=== PATIENT | female | born 1950 | race Caucasian/White ===

== ENCOUNTER → 2017-03-05 | Outpatient (CLI) | payer MEDICARE ==
--- NOTE | 2017-03-05 15:24 | US ---
EXAMINATION: Ultrasound guided right breast biopsy HISTORY: Mass COMPARISON: 02/24/2017 TECHNIQUE: The procedure, risks, and benefits were discussed with the patient. Informed consent was obtained. The mass was located within the overlying area was sterilely prepped and draped. 1% lidoca ine was administered for local anesthesia. Using ultrasound guidance a total of 3 14-gauge core biop sies were obtained. A clip was placed following the procedure. The patient tolerated the procedure w ell. No immediate complications. IMPRESSION: Successful ultrasound-guided biopsy of the right breast mass.
== END ==
LOC: MW.US 10:14
PROVIDERS: ATTEND Family Medicine
DX: N63 Unspecified lump in breast (principal)
CPT/HCPCS: 19083-RT; 88305

== ENCOUNTER 2017-05-07 07:24 | Day surgery (SDC) | payer MEDICARE ==
[~2017-05-07 07:24] MED LIST: Lactated Ringers 1,000 ML IV SCH; Sodium Chloride 0.9% 10 ML Syringe FLUSH PRN; Sodium Chloride 0.9% 2.5 ML Syringe FLUSH PRN; ceFAZolin 1 GM in Premix Bag 1 BAG IV ONE
[2017-05-07] MEDS ORDERED: Lidocaine 1% 20 ML MDV ONE (07:31)
[2017-05-07] MEDS ORDERED: Bupivacaine 0.5% 30 ML SDV ONE (07:31)
--- NOTE | 2017-05-07 08:35 | PCM.PREANE ---
Preanesthetic Assessment - Anesthesia/Transfusion/Family Hx Anesthesia History: Prior Anesthesia Without Reaction Family History of Anesthesia Reaction: No Transfusion History: No Prior Transfusion(s) Intubation History: Unknown - Review of Systems General: No Symptoms Pulmonary: No Symptoms Cardiovascular: No Symptoms Gastrointestinal: No Symptoms Neurological: No Symptoms Other: Reports: None - Physical Assessment O2 Sat by Pulse Oximetry: 98 Respiratory Rate: 16 Vital Signs: Last Vital Signs Temp 36.5 C 05/07/17 07:36 Pulse 69 05/07/17 07:36 Resp 16 05/07/17 07:36 BP 161/74 H 05/07/17 07:36 Pulse Ox 98 05/07/17 07:36 Height: 1.63 m Weight: 52.617 kg ASA Class: 2 Mental Status: Alert & Oriented x3 Airway Class: Mallampati = 2 Dentition: Reports: Dentures (upper and lower) Thyro-Mental Finger Breadths: 3 Mouth Opening Finger Breadths: 3 ROM/Head Extension: Full Lungs: Clear to Auscultation, Normal Respiratory Effort Cardiovascular: Regular Rate, Regular Rhythm - Allergies Allergies/Adverse Reactions: Allergies Allergy/AdvReac Type Severity Reaction Status Date / Time No Known Allergies Allergy Verified 01/06/15 14:40 - Blood Blood Available: No - Anesthesia Plan Pre-Op Medication Ordered: None - Acknowledgements Anesthesia Type Planned: General Anesthesia Pt an Appropriate Candidate for the Planned Anesthesia: Yes Alternatives and Risks of Anesthesia Discussed w Pt/Guardian: Yes Pt/Guardian Understands and Agrees with Anesthesia Plan: Yes PreAnesthesia Questionnaire Other HEENT History: top and bottom dentures, Respiratory History: Reports: Other (See Below) Other Respiratory History: former smoker, has SOB with activity (ventolin inhaler prn), can wall 2 blocks without problems Gastrointestinal History: Reports: None Genitourinary History: Reports: None 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: Musculoskeletal History: Reports: Arthritis, Fracture Other Musculoskeletal History: hx surgery for fx left ankle Psychiatric History: Reports: Anxiety, Depression Other Psychiatric History: hx alcohol abuse Oncologic (Cancer) History: Reports: Breast (infiltrating ductal CA right breast ), Uterine - Past Surgical History Head Surgeries/Procedures: Reports: None HEENT Surgical History: Reports: Cataract Surgery, Tonsillectomy GI Surgical History: Reports: Colonoscopy Female Surgical History: Reports: Hysterectomy Musculoskeletal Surgical History: Reports: Other (See Below) (foot surgery) - SUBSTANCE USE Smoking Status *Q: Former Smoker Tobacco Use Within Last Twelve Months: No Days Per Week of Alcohol Use: 2 Number of Drinks Per Day: 5 Total Drinks Per Week: 10 Recreational Drug Use History: No Recreational Drug Type: Reports: Methamphetamine - HOME MEDS Home Medications: Home Meds Albuterol [Ventolin HFA] 1 - 2 puff INH Q4HR PRN 08/16/15 [History] - CURRENT (IN HOUSE) MEDS Current Meds: Current Medications Lactated Ringer's (Ringers, Lactated) 1,000 mls @ 125 mls/hr IV ASDIRECTED LYNNETTE Last Admin: 05/07/17 07:37 Dose: 125 mls/hr Sodium Chloride (Saline Flush) 10 ml FLUSH ASDIRECTED PRN PRN Reason: Keep Vein Open Sodium Chloride (Saline Flush) 2.5 ml FLUSH ASDIRECTED PRN PRN Reason: Keep Vein Open Discontinued Medications Bupivacaine HCl (Marcaine 0.5%) Confirm Administered Dose 30 ml .ROUTE .STK-MED ONE Stop: 05/07/17 07:32 Cefazolin Sodium/Dextrose 1 gm (/ Premix) 50 mls @ 100 mls/hr IV ONETIME ONE Stop: 05/06/17 11:00 Lidocaine HCl (Xylocaine 1%) Confirm Administered Dose 20 ml .ROUTE .STK-MED ONE Stop: 05/07/17 07:32
[2017-05-07] MEDS ORDERED: Midazolam 1 MG/ML 2 ML SDV ONE (09:10)
[2017-05-07] MEDS ORDERED: fentaNYL 100 MCG/2 ML SDV ONE (09:10)
[2017-05-07] MEDS ORDERED: Lidocaine 2% 5 ML SDV ONE (09:10)
[2017-05-07] MEDS ORDERED: Ondansetron 4 MG/2 ML SDV ONE (09:10)
[2017-05-07] MEDS ORDERED: Propofol 200 MG/20 ML SDV ONE (09:10)
[2017-05-07] MEDS ORDERED: ePHEDrine 50 MG/ML SDV ONE (10:24)
[2017-05-07] MEDS ORDERED: Octyl 2-Cyanoacrylate 1 Tube ONE (11:12)
--- NOTE | 2017-05-07 11:19 | US ---
EXAMINATION: Ultrasound-guided wire localization HISTORY: Breast mass COMPARISON: 03/05/2017 TECHNIQUE: The procedure, risks, and benefits were discussed with the patient. Consent was obtained. The mass was localized in the 12:00 position. The overlying area was sterilely prepped. 1% lidocain e was administered for local anesthesia. Using ultrasound guidance a wire localization needle was ad vanced through the breast mass and the hook was deployed on the opposite side. The wire was left in place. IMPRESSION: Successful ultrasound-guided wire localization of a right breast mass.
--- NOTE | 2017-05-07 11:21 | NM ---
EXAMINATION: Right breast lymphoscintigraphy HISTORY: Malignant neoplasm TECHNIQUE: The procedure was discussed with the patient. The right periareolar region was prepped wi th ChloraPrep. A needle filled with 1.1 mCi technetium 99M labeled sulfur colloid was used to place a total of 8 small intradermal injections surrounding the area lateral. The patient tolerated the pr ocedure well. FINDINGS: Post injection imaging demonstrates a sentinel lymph node within the right axillary region . IMPRESSION: Successful right breast lymphoscintigraphy.
--- NOTE | 2017-05-07 11:44 | MY ---
EXAMINATION: Specimen mammogram HISTORY: Lump COMPARISON: 02/24/2017 TECHNIQUE: Single specimen image FINDINGS/IMPRESSION: Post biopsy specimen mammogram demonstrates the mass of concern.
--- NOTE | 2017-05-07 12:33 | PCM.OPNOTE ---
- General Post-Op/Procedure Note Date of Surgery/Procedure: 05/07/17 Operative Procedure(s): Right sentinel lymph node biopsy and right lumpectomy Findings: [place] lymph nodes taken from right axilla. No evidence of malignancy on frozens. Right upper outer quadrant lumpectomy. Margins free of tumor. Pre Op Diagnosis: right breast cancer Post-Op Diagnosis: same Anesthesia Technique: General LMA Primary Surgeon: Alyssa Powers Pathology: right sentinel lymph node, right breast lump EBL in mLs: 10 Condition: Good Free Text/Narrative:: Intake & Output 05/06/17 05/07/17 05/07/17 22:59 06:59 14:59 Intake Total 1450 Balance 1450
[2017-05-07] MEDS ORDERED: Acetaminophen/oxyCODONE 325-5 MG Tab PO PRN (12:35)
[2017-05-07 13:15] VITALS: BP 134/59
--- NOTE | 2017-05-08 02:19 | OR ---
SURGEON: GARO GARZA MD DATE OF PROCEDURE: 05/07/2017 PREOPERATIVE DIAGNOSIS: Invasive ductal carcinoma of the right breast. POSTOPERATIVE DIAGNOSIS: Invasive ductal carcinoma of the right breast. PROCEDURE PERFORMED: Right breast lumpectomy and sentinel lymph node biopsy. ANESTHESIA: General LMA. EBL: 10 mL. FLUIDS: 1450 mL crystalloid. FINDINGS: Right axillary sentinel lymph node with no evidence of metastasis on frozen section. Right upper outer quadrant breast mass that was wire localized. Radiograph shows complete resection of the mass. Frozen section showed good margins. COMPLICATIONS: None. INDICATIONS: The patient is a 67-year-old female, who presents to clinic with a biopsy-proven invasive ductal carcinoma of the right upper outer quadrant of the breast. The patient has no clinically palpable axillary lymph nodes. The decision was made to proceed to the operating room for a right breast lumpectomy and sentinel lymph node biopsy. The patient and I discussed the procedure as well as expected perioperative course. We discussed the clinical significance of performing a lumpectomy over a mastectomy. The patient verbalized a strong desire to undergo a lumpectomy. We discussed the risks including bleeding, infection, damage to surrounding structures, possible seroma or hematoma formation as well as a right arm lymphedema or damage to nerves around the axilla. The patient verbalized understanding and wishes to proceed. PROCEDURE IN DETAIL: The patient was brought first to Radiology. There, a wire localization of the right breast mass was performed as well as lymphoscintigraphy. Images after lymphoscintigraphy were performed, showed uptake of an axillary lymph node on the right side. The patient was brought into the operating room and placed on the OR table in supine position. A time-out was completed verifying the patient's name, age, date of , allergies, and procedure to be performed. General LMA anesthesia was induced. The patient's right arm, axilla, chest, and neck were prepped and draped in the usual standard fashion. The wire was included in the prep. A 5 mL of Lymphazurin blue was injected subdermally around the areola. The area was then massaged for 5 minutes to allow uptake of the blue dye into the lymphatic system. Using a [employer] counter, I toned an area of radioactivity within the right axilla. It measured around 600. A 4 cm incision was then made over the area of highest radioactivity. I anesthetized the area first with 1% lidocaine plain. Using a [place] counter, I then dissected through the subcutaneous fat into the axillary fat towards the area of highest radioactivity. A blue lymph node was noted. This area was grasped and I dissected the lymph node from the surrounding tissue. This was placed on the back table and the [place] counter read the radioactivity as 1800. Hemostasis was achieved with cautery. I placed the Tyler counter back into my incision and explored the area around my initial sentinel lymph node. No further areas of any significant radioactivity were found. By significant activity I mean greater than 10% of the original sentinel lymph node radioactivity. I then placed a wet lap in my wound bed and turned my attention to the right breast. The sentinel lymph node was sent to pathology. During the case, I was called and informed that indeed the tissue I had sent was the sentinel lymph node and that there was no evidence of metastasis in this. A curvilinear incision was made over the top of the patient's previously identified right breast mass. The breast mass itself was very close to the skin and therefore I included an ellipse of tissue over this. Using a Silvino, I then grasped the overlying skin and the mass and elevated it. Using cautery, I dissected around the hard firm mass in the right upper outer quadrant leaving a generous rim of normal feeling tissue. Before removing the mass from the wound bed, I orientated the specimen with a 3-0 silk suture for pathology. I then undermined the lesion and passed it off the field. The mass was then taken to pathology. I marked to the wound bed with clips for possible radiation later. Hemostasis was achieved with electrocautery. Pathology called and stated that the specimen was removed in its entirety with good margins. The specimen had also been sent to Radiology and the wire was inside the mass with good radiographic margins. I then began to close the wound with interrupted 3-0 Vicryl in the subcutaneous fat. This was done in layers to allow for appropriate closure of the space left by my lumpectomy. The skin was then closed with a running 4-0 Monocryl suture. I turned my attention to my axillary incision. This was closed with interrupted 3- 0 Vicryl in the subcutaneous tissue and a running 4-0 Monocryl suture. I placed Dermabond over the top of my axillary incision and Steri-Strips across the top of my breast incision. Sterile dressings were applied. Counts were complete and correct at the end of the case. The patient was transferred to the PACU in stable condition. LILLIAM HICKEY /[id number]
== END 2017-05-07 13:11 | disposition home or self-care (01) ==
LOC: MW.SDS 07:24
PROVIDERS: ATTEND Surgery
PROC: 0HBT0ZZ Excision of Right Breast, Open Approach (ICD-10-PCS; principal; 2017-05-07)
PROC: 07B50ZX Excision of Right Axillary Lymphatic, Open Approach, Diagnostic (ICD-10-PCS; 2017-05-07)
DX: C50.411 Malignant neoplasm of upper-outer quadrant of right female breast (principal); Z17.0 Estrogen receptor positive status [ER+]; M19.90 Unspecified osteoarthritis, unspecified site; R19.4 Change in bowel habit; F32.9 Major depressive disorder, single episode, unspecified; Z79.899 Other long term (current) drug therapy; F17.210 Nicotine dependence, cigarettes, uncomplicated
CPT/HCPCS: 19301; 38500; 76098; 76942; A9270; J0690; J2250; J2405; J3010; J7120; 01610; 78195; 78195-26; 88307; 88331; A9541; J2704

== ENCOUNTER 2019-02-23 07:13 | Observation (INO) | payer MEDICARE ==
[~2019-02-23 07:13] MED LIST changes: -Lactated Ringers 1,000 ML IV SCH; +Ondansetron 4 MG Tab.DIS PO PRN; +Ondansetron 4 MG/2 ML SDV IVPUSH PRN; -Sodium Chloride 0.9% 10 ML Syringe FLUSH PRN; -Sodium Chloride 0.9% 2.5 ML Syringe FLUSH PRN; -ceFAZolin 1 GM in Premix Bag 1 BAG IV ONE; +diphenhydrAMINE 25 MG Cap PO PRN
[2019-02-23] MEDS ORDERED: Gentamicin 40 MG/ML 2 ML Vial ONE (07:24)
[2019-02-23] MEDS ORDERED: EPINEPHrine 1 MG/ML SDV ONE (07:24)
[2019-02-23] MEDS ORDERED: ceFAZolin 1 GM Vial ONE (07:24)
[2019-02-23] MEDS ORDERED: Bupivacaine 25%/EPINEPHrine/PF 30 ML ONE (07:25)
[2019-02-23] MEDS ORDERED: Bupivacaine 25%/EPINEPHrine/PF 30 ML Vial INJECT ONE (08:00)
[2019-02-23] MEDS ORDERED: ceFAZolin 2 GM in Premix Bag 1 BAG IV ONE (08:00)
--- NOTE | 2019-02-23 08:29 | PCM.PREANE ---
Preanesthetic Assessment - Anesthesia/Transfusion/Family Hx Anesthesia History: Prior Anesthesia Without Reaction Family History of Anesthesia Reaction: No Transfusion History: No Prior Transfusion(s) Intubation History: Unknown - Review of Systems General: No Symptoms Pulmonary: No Symptoms Cardiovascular: No Symptoms Gastrointestinal: No Symptoms Neurological: No Symptoms Other: Reports: None - Physical Assessment Height: 1.63 m Weight: 54.885 kg ASA Class: 3 Mental Status: Alert & Oriented x3 Airway Class: Mallampati = 2 Dentition: Reports: Dentures (upper and lower) Thyro-Mental Finger Breadths: 3 Mouth Opening Finger Breadths: 3 ROM/Head Extension: Full Lungs: Clear to Auscultation, Normal Respiratory Effort, Decreased Breath Sounds Cardiovascular: Regular Rate, Regular Rhythm - Allergies Allergies/Adverse Reactions: Allergies Allergy/AdvReac Type Severity Reaction Status Date / Time No Known Allergies Allergy Verified 02/21/19 10:54 - Blood Blood Available: No - Anesthesia Plan Pre-Op Medication Ordered: None - Acknowledgements Anesthesia Type Planned: General Anesthesia Pt an Appropriate Candidate for the Planned Anesthesia: Yes Alternatives and Risks of Anesthesia Discussed w Pt/Guardian: Yes Pt/Guardian Understands and Agrees with Anesthesia Plan: Yes PreAnesthesia Questionnaire HEENT History: Reports: Cataract, Hard of Hearing, Other (See Below) Other HEENT History: uses reading glasses, has upper full denture and lo0wer removable partial denture Respiratory History: Reports: Other (See Below) Other Respiratory History: former smoker, has SOB with activity (ventolin inhaler prn), can wall 2 blocks without problems Gastrointestinal History: Reports: Other (See Below) Other Gastrointestinal History: occasional heartburn- takes TUMS Genitourinary History: Reports: 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 hip pain), Fracture Other Musculoskeletal History: hx of fx left foot and toe Psychiatric History: Reports: Anxiety, Depression Other Psychiatric History: hx alcohol abuse Oncologic (Cancer) History: Reports: Breast, Uterine - Past Surgical History HEENT Surgical History: Reports: Cataract Surgery, Tonsillectomy GI Surgical History: Reports: Colonoscopy Female Surgical History: Reports: Breast Biopsy, Hysterectomy, Salpingo- Oophorectomy Musculoskeletal Surgical History: Reports: ORIF Other Musculoskeletal Surgeries/Procedures:: ORIF left foot- denies hardware Oncologic Surgical History: Reports: Lumpectomy, Other (See Below) Other Oncologic Surgeries/Procedures: Hysterectomy, BSO - SUBSTANCE USE Smoking Status *Q: Former Smoker (quit long time ago) Tobacco Use Within Last Twelve Months: No Recreational Drug Use History: No - HOME MEDS Home Medications: Home Meds Calcium Polycarbophil [Fiber Laxative] 625 mg PO DAILY 02/21/19 [History] - CURRENT (IN HOUSE) MEDS Current Meds: Current Medications Hydrocodone Bitart/Acetaminophen ([place] 325-5 Mg) 1 tab PO Q4H PRN PRN Reason: Pain Cephalexin (Keflex) 500 mg PO Q6HR LYNNETTE Cyclobenzaprine HCl (Flexeril) 5 mg PO TID LYNNETTE Diphenhydramine HCl (Benadryl) 25 mg PO Q6H PRN PRN Reason: itch Cefazolin Sodium/Dextrose 2 gm (/ Premix) 50 mls @ 100 mls/hr IV ONETIME ONE Stop: 02/23/19 08:29 Lactated Ringer's (Ringers, Lactated) 1,000 mls @ 125 mls/hr IV ASDIRECTED LYNNETTE Morphine Sulfate (Morphine) 1 mg IVPUSH Q1H PRN PRN Reason: Pain (severe 7-10) Ondansetron HCl (Zofran Odt) 4 mg PO Q6H PRN PRN Reason: Nausea/Vomiting Ondansetron HCl (Zofran) 4 mg IVPUSH Q6H PRN PRN Reason: Nausea/Vomiting Discontinued Medications Bacitracin (Bacitracin) Confirm Administered Dose 50,000 units .ROUTE .STK-MED ONE Stop: 02/23/19 07:26 Bupivacaine HCl/Epinephrine Bitart (Sensorc Mpf 0.25%-Epi 1:[id number]) 30 ml INJECT ONETIME ONE Stop: 02/23/19 08:01 Cefazolin Sodium (Ancef) Confirm Administered Dose 1 gm .ROUTE .STK-MED ONE Stop: 02/23/19 07:25 Epinephrine HCl (Adrenalin) Confirm Administered Dose 1 mg .ROUTE .STK-MED ONE Stop: 02/23/19 07:25 Gentamicin Sulfate (Gentamicin) Confirm Administered Dose 80 mg .ROUTE .STK-MED ONE Stop: 02/23/19 07:25 Bupivacaine HCl/Epinephrine Bitart (Sensorc Mpf 0.25%-Epi 1:[id number]) Confirm Administered Dose 30 mls @ as directed .ROUTE .STK-MED ONE Stop: 02/23/19 07:26
[2019-02-23] MEDS ORDERED: Rocuronium 100 MG/10 ML Syringe ONE (08:33)
[2019-02-23] MEDS ORDERED: fentaNYL 250 MCG/5 ML SDV ONE (08:33)
[2019-02-23] MEDS ORDERED: Propofol 200 MG/20 ML SDV ONE (08:33)
[2019-02-23] MEDS ORDERED: Midazolam 1 MG/ML 2 ML SDV ONE (08:33)
[2019-02-23] MEDS: Lactated Ringers 1,000 ML IV SCH ×2 (09:25→21:20)
--- NOTE | 2019-02-23 10:16 | NM ---
EXAMINATION: NM right breast lymphoscintigraphy HISTORY: Malignancy TECHNIQUE: The procedure, risks, and benefits were discussed with the patient. Right breast was prepped with ChloraPrep. 1.1 mCi of technetium 99m labeled sulfur colloid was placed into a TB syringe. A total of 8 intradermal injections were placed along the periphery of the areola. Within 15 minutes there are 2 focal areas of uptake within the right axillary region consistent with sentinel lymph nodes. IMPRESSION: 1. Successful right breast lymphoscintigraphy.
[2019-02-23] MEDS ORDERED: fentaNYL 100 MCG/2 ML SDV IVPUSH PRN (11:11)
[2019-02-23] MEDS ORDERED: Ondansetron 4 MG/2 ML SDV IVPUSH ONE (11:11)
--- NOTE | 2019-02-23 11:50 | PCM.OPNOTE ---
- General Post-Op/Procedure Note Date of Surgery/Procedure: 02/23/19 Operative Procedure(s): Right breast sentinel lymph node biopsy and right breast mastectomy Findings: Right breast mass abutting the previous lumpectomy scar, no involvement in the chest wall/grossly negative posterior margin. 2 lymph nodes that were grossly negative on frozen section Pre Op Diagnosis: RIght breast cancer Post-Op Diagnosis: same Anesthesia Technique: MAC Primary Surgeon: Alyssa Powers Condition: Good
[2019-02-23] MEDS ORDERED: Desflurane 240 ML Bottle ONE (12:15)
[2019-02-23] MEDS ORDERED: Neostigmine Methylsulfate 1 MG/ML 5 ML Syringe ONE (12:51)
[2019-02-23] MEDS ORDERED: Glycopyrrolate 0.2 MG/ML SDV ONE (12:51)
--- NOTE | 2019-02-23 14:04 | PCM.POSTAN ---
POST ANESTHESIA ASSESSMENT - MENTAL STATUS Mental Status: Alert, Oriented - RESPIRATORY Respiratory Status: Respiratory Rate WNL, Airway Patent, O2 Saturation Stable - CARDIOVASCULAR CV Status: Pulse Rate WNL, Blood Pressure Stable - GASTROINTESTINAL GI Status: No Symptoms - PAIN Pain Score: 5 - POST OP HYDRATION Hydration Status: Adequate & Stable - OBSERVATIONS Free Text/Narrative:: no anesthesia problems
[2019-02-23] MEDS: Acetaminophen/HYDROcodone 325-5 MG Tab PO PRN ×2 (15:40→20:21)
[2019-02-23] MEDS: Cephalexin 500 MG Cap PO SCH ×2 (15:41→23:02)
--- NOTE | 2019-02-23 16:36 | MY ---
EXAMINATION: Specimen mammogram HISTORY: Breast cancer COMPARISON: 09/29/2018 TECHNIQUE: Single specimen images obtained. FINDINGS/IMPRESSION: The mammogram specimen demonstrates the small mass and clip of concern. This is located approximately the C1 within the grid.
--- NOTE | 2019-02-23 16:59 | PCM.OPNOTE ---
- General Post-Op/Procedure Note Date of Surgery/Procedure: 02/23/19 Operative Procedure(s): right breast reconstruction with submuscular direct to 275cc implant reconstruction. left breast symmetry procedure - breast lift Pre Op Diagnosis: right breast cancer - post mastectomy need for reconstruction Post-Op Diagnosis: Same Anesthesia Technique: General ET Tube, Local Primary Surgeon: Tawanna Fleming Wallpaper Printer Helper: Najma Diez Complications: None Condition: Good Free Text/Narrative:: Intake & Output 02/23/19 02/23/19 02/23/19 07:59 15:59 23:59 Intake Total 2100 Output Total 95 Balance 2005
[2019-02-23] MEDS ORDERED: Morphine 2 MG/ML Syringe IVPUSH PRN (18:00)
--- NOTE | 2019-02-23 18:25 | OR ---
SURGEON: ALYSSA GARZA MD DATE OF PROCEDURE: 02/23/2019 PREOPERATIVE DIAGNOSIS: Recurrent right breast cancer. POSTOPERATIVE DIAGNOSIS: Recurrent right breast cancer. PROCEDURE PERFORMED: Right sentinel lymph node biopsy, right mastectomy. PRIMARY SURGEON: Alyssa Garza MD. SECONDARY SURGEON: Dr. Tawanna Fleming. SEAPORT PLANNING MANAGER: dental hygiene administrative assistant: FAITH Queen. FLUIDS: See anesthesia record. ESTIMATED BLOOD LOSS: 25 mL. URINE OUTPUT: See anesthesia record. FINDINGS: Two sentinel lymph nodes identified, both showed no evidence of gross malignancy on frozen section. Right mastectomy with grossly negative margins. COMPLICATIONS: None. INDICATIONS: The patient is a 69-year-old female with recurrent right breast cancer. The decision was made to proceed with a mastectomy and repeat sentinel lymph node biopsy. I explained the procedure to the patient including the risks, benefits, and expected perioperative course. She has opted for immediate reconstruction. Dr. Tawanna Fleming and her care management assistant, FAITH Gipson, will be performing this part of the procedure. Please see their notes for further details. The patient verbalized understanding and wishes to proceed. PROCEDURE IN DETAIL: The patient was brought into the OR and placed on the OR table in supine position. A time-out was completed verifying the patient's name, age, date of , allergies, and procedure to be performed. A [place] catheter was placed. The arm, neck, and chest wall were prepped and draped in usual standard fashion. The patient had undergone lymphoscintigraphy preoperatively. Using a [place] counter, I identified an area on the skin of greatest radioactivity. Her previous lumpectomy incision was located in the right upper outer quadrant. Dr. Fleming and I decided to use this as our incision. An elliptical incision was made along the previous scar using a 15 blade. The breast was anesthetized with 0.5% Marcaine plain. Cautery was used to dissect down the level of subcutaneous fat. I raised the flap superiorly up toward the lateral border of the clavicle. This was then carried out laterally down into the axilla. The [place] counter was then used to find the area of greatest radioactivity. Two lymph nodes were identified close to the chest wall and superiorly along the axillary vein. These were removed using sharp dissection and placed on the back table. The one lymph node had a [place] counter reading of 900 and other 800. Hemostasis was achieved with electrocautery. I used the [place] counter and confided no other areas of any significant radioactivity. [place] lymph nodes were sent to pathology for frozen section. There was no evidence of gross malignancy on this pathology. I turned my attention to the mastectomy portion of the case. With the help of Dr. Fleming, we continued to raise skin flaps superiorly to the clavicle, medially to the sternal border, inferiorly to the inframammary fold, and laterally to the axillary fat. The breast was then removed from the underlying pectoralis muscle and fascia in a medial to lateral fashion. When I got up into the axillary tail, I identified clips from my previous lumpectomy incision site. There was no gross tumor involvement in the muscle below the breast tissue. The breast was placed on the back table and oriented. I took it to Radiology and a mammogram was performed that showed the biopsy clip within the specimen and then took it to Pathology. On gross review, the posterior margin was grossly negative; however, the skin margin inferiorly was close. Dr. Tawanna Fleming then took another inferior ellipse of skin tissue to ensure grossly negative margins. This was brought over in a separate container. The case was then handed over to Dr. Fleming and her care management assistant. Please see their note for further details. LILLIAM HICKEY /[id number]
[2019-02-23] MEDS: Cyclobenzaprine 5 MG Tab PO SCH (23:02)
[2019-02-24] MEDS: Cephalexin 500 MG Cap PO SCH ×2 (05:50→12:44)
[2019-02-24] MEDS: Cyclobenzaprine 5 MG Tab PO SCH (05:50)
[2019-02-24] MEDS: Lactated Ringers 1,000 ML IV SCH (05:50)
--- NOTE | 2019-02-24 11:26 | PCM.SURGPN ---
- General Info Date of Service: 02/24/19 Date of Surgery/Procedure: 02/23/19 POD#: 1 Post-Op Diagnosis: right breast cancer - need for reconstruction Functional Status: Reports: Pain Controlled, Tolerating Diet, Ambulating, Other (PAS boots on and patient is ambulatory. ) - Review of Systems General: Reports: No Symptoms HEENT: Reports: No Symptoms Pulmonary: Reports: No Symptoms Cardiovascular: Reports: No Symptoms Genitourinary: Reports: No Symptoms Musculoskeletal: Reports: Other (swelling and muscle pain as expected. ) Skin: Reports: No Symptoms Neurological: Reports: No Symptoms Psychiatric: Reports: No Symptoms - Patient Data Vitals - Most Recent: Last Vital Signs Temp 97.2 F 02/24/19 08:00 Pulse 72 02/24/19 08:00 Resp 16 02/24/19 08:00 BP 102/55 L 02/24/19 08:00 Pulse Ox 96 02/24/19 08:00 Weight - Most Recent: 121 lb I&O - Last 24 Hours: Intake & Output 02/23/19 02/24/19 02/24/19 23:59 07:59 15:59 Intake Total 1000 2078 Output Total 830 Balance 1000 1248 Med Orders - Current: Current Medications Hydrocodone Bitart/Acetaminophen ([place] 325-5 Mg) 1 tab PO Q4H PRN PRN Reason: Pain Last Admin: 02/23/19 20:21 Dose: 1 tab Cephalexin (Keflex) 500 mg PO Q6HR [facility] Last Admin: 02/24/19 05:50 Dose: 500 mg Cyclobenzaprine HCl (Flexeril) 5 mg PO TID [facility] Last Admin: 02/24/19 05:50 Dose: 5 mg Diphenhydramine HCl (Benadryl) 25 mg PO Q6H PRN PRN Reason: itch Lactated Ringer's (Ringers, Lactated) 1,000 mls @ 125 mls/hr IV ASDIRECTED [facility] Last Admin: 02/24/19 05:50 Dose: 125 mls/hr Morphine Sulfate (Morphine) 1 mg IVPUSH Q1H PRN PRN Reason: Pain (severe 7-10) Ondansetron HCl (Zofran Odt) 4 mg PO Q6H PRN PRN Reason: Nausea/Vomiting Ondansetron HCl (Zofran) 4 mg IVPUSH Q6H PRN PRN Reason: Nausea/Vomiting Discontinued Medications Bacitracin (Bacitracin) Confirm Administered Dose 50,000 units .ROUTE .STK-MED ONE Stop: 02/23/19 07:26 Bupivacaine HCl/Epinephrine Bitart (Sensorc Mpf 0.25%-Epi 1:[id number]) 30 ml INJECT ONETIME ONE Stop: 02/23/19 08:01 Last Admin: 02/23/19 14:43 Dose: Not Given Cefazolin Sodium (Ancef) Confirm Administered Dose 1 gm .ROUTE .STK-MED ONE Stop: 02/23/19 07:25 Desflurane (Suprane) Confirm Administered Dose 240 ml .ROUTE .STK-MED ONE Stop: 02/23/19 12:16 Epinephrine HCl (Adrenalin) Confirm Administered Dose 1 mg .ROUTE .STK-MED ONE Stop: 02/23/19 07:25 Fentanyl (Sublimaze) Confirm Administered Dose 250 mcg .ROUTE .STK-MED ONE Stop: 02/23/19 08:34 Fentanyl (Sublimaze) 50 mcg IVPUSH Q5M PRN PRN Reason: Pain (severe 7-10) Stop: 02/24/19 11:11 Last Admin: 02/23/19 13:57 Dose: 50 mcg Gentamicin Sulfate (Gentamicin) Confirm Administered Dose 80 mg .ROUTE .STK-MED ONE Stop: 02/23/19 07:25 Glycopyrrolate (Robinul) Confirm Administered Dose 0.8 mg .ROUTE .STK-MED ONE Stop: 02/23/19 12:52 Cefazolin Sodium/Dextrose 2 gm (/ Premix) 50 mls @ 100 mls/hr IV ONETIME ONE Stop: 02/23/19 08:29 Last Admin: 02/23/19 14:43 Dose: Not Given Bupivacaine HCl/Epinephrine Bitart (Sensorc Mpf 0.25%-Epi 1:[id number]) Confirm Administered Dose 30 mls @ as directed .ROUTE .STK-MED ONE Stop: 02/23/19 07:26 Lidocaine HCl (Xylocaine-Mpf 1%) Confirm Administered Dose 5 mls @ as directed .ROUTE .STK-MED ONE Stop: 02/23/19 08:34 Midazolam HCl (Versed 1 Mg/Ml) Confirm Administered Dose 2 mg .ROUTE .STK-MED ONE Stop: 02/23/19 08:34 Neostigmine Methylsulfate (Neostigmine) Confirm Administered Dose 5 mg .ROUTE .STK-MED ONE Stop: 02/23/19 12:52 Ondansetron HCl (Zofran) 4 mg IVPUSH ONETIME ONE Stop: 02/23/19 11:12 Last Admin: 02/23/19 14:42 Dose: Not Given Propofol (Diprivan 20 Ml) Confirm Administered Dose 200 mg .ROUTE .STK-MED ONE Stop: 02/23/19 08:34 Rocuronium [place] (Zemuron) Confirm Administered Dose 100 mg .ROUTE .STK-MED ONE Stop: 02/23/19 08:34 - Exam Wound/Incisions: Healing Well, Dressing Dry and Intact, Drainage (in CRISTAL's only. Serosanguinous. ). No: Erythema General: Alert, Oriented, Cooperative HEENT: EOMI Lungs: Normal Respiratory Effort Extremities: Normal Range of Motion Skin: Warm, Dry, Intact. No: Ecchymosis Neurological: No New Focal Deficit Psy/Mental Status: Alert, Normal Affect, Normal Mood - Problem List & Annotations (1) Breast cancer SNOMED Code(s): 808731228 Code(s): C50.919 - MALIGNANT NEOPLASM OF UNSP SITE OF UNSPECIFIED FEMALE BREAST Status: Acute Current Visit: Yes Qualifiers: Breast location: upper outer quadrant of breast Estrogen receptor status: unspecified Patient sex: female Laterality: right Qualified Code(s): C50.411 - Malignant neoplasm of upper-outer quadrant of right female breast (2) Admission for breast reconstruction following mastectomy SNOMED Code(s): 149660963, 201744050 Code(s): Z42.1 - ENCOUNTER FOR BREAST RECONSTRUCTION FOLLOWING MASTECTOMY Status: Acute Priority: Medium Current Visit: Yes - Problem List Review Problem List Initiated/Reviewed/Updated: Yes - My Orders Last 24 Hours: Active Orders 24 hr Category Date Time Status Patient Status [ADT] Routine ADT 02/23/19 14:00 Active Communication Order [RC] DAILY Care 02/23/19 16:48 Active Ready for Discharge [RC] PER UNIT ROUTINE Care 02/24/19 11:21 Active Regular Diet [DIET] Diet 02/23/19 Dinner Active Cyclobenzaprine [Flexeril] Med 02/23/19 22:00 Active 5 mg PO TID Morphine Med 02/23/19 18:00 Active 1 mg IVPUSH Q1H PRN cephALEXin [Keflex] Med 02/23/19 16:00 Active 500 mg PO Q6HR Medication Orders Hydrocodone Bitart/Acetaminophen ([place] 325-5 Mg) 1 tab PO Q4H PRN PRN Reason: Pain Last Admin: 02/23/19 20:21 Dose: 1 tab Admin: 02/23/19 15:40 Dose: 1 tab Cephalexin (Keflex) 500 mg PO Q6HR [facility] Last Admin: 02/24/19 05:50 Dose: 500 mg Admin: 02/23/19 23:02 Dose: 500 mg Admin: 02/23/19 15:41 Dose: 500 mg Cyclobenzaprine HCl (Flexeril) 5 mg PO TID [facility] Last Admin: 02/24/19 05:50 Dose: 5 mg Admin: 02/23/19 23:02 Dose: 5 mg Diphenhydramine HCl (Benadryl) 25 mg PO Q6H PRN PRN Reason: itch Lactated Ringer's (Ringers, Lactated) 1,000 mls @ 125 mls/hr IV ASDIRECTED [facility] Last Admin: 02/24/19 05:50 Dose: 125 mls/hr Infusion: 02/24/19 05:20 Dose: 125 mls/hr Admin: 02/23/19 21:20 Dose: 125 mls/hr Infusion: 02/23/19 17:25 Dose: 125 mls/hr Admin: 02/23/19 09:25 Dose: 125 mls/hr Morphine Sulfate (Morphine) 1 mg IVPUSH Q1H PRN PRN Reason: Pain (severe 7-10) Ondansetron HCl (Zofran Odt) 4 mg PO Q6H PRN PRN Reason: Nausea/Vomiting Ondansetron HCl (Zofran) 4 mg IVPUSH Q6H PRN PRN Reason: Nausea/Vomiting - Assessment Assessment (Free Text/Narrative):: doing great pod 1 with pain controlled. Swelling as expected. Incisions clean , dry and intact. - Plan Plan (Free Text/Narrative):: We will discharge home today and recheck next week, sooner with any issues or concerns. All questions answered. [place], Keflex and Flexeril for home use. Discharge instructions provided.
[2019-02-24 12:30] VITALS: BP 89/60
--- NOTE | 2019-02-24 13:17 | PCM.SN ---
- Free Text/Narrative Note: I visited with the patient this am. She is feeling well. Pain is under good control. No acute events overnight. Dressings were clean dry and intact. Patient cleared for discharge by plastics and myself. Will see patient in clinic in 2 weeks.
== END 2019-02-24 14:10 | disposition home or self-care (01) ==
LOC: MW.SDS 07:13 → MW.MS 14:38
PROVIDERS: ADMIT Plastic Surgery; ATTEND Plastic Surgery
DX: C50.911 Malignant neoplasm of unspecified site of right female breast (principal)
CPT/HCPCS: 19301; 19316; 19340; 38525; 76098; 78195; A9270; A9541; C1762; C1789; J0171; J0690; J1580; J2001; J2250; J2704; J3010; J3490; J7120; 01610

== ENCOUNTER 2019-03-01 11:42 | Observation (INO) | payer MEDICARE ==
--- NOTE | 2019-03-01 12:02 | PCM.HP ---
H&P History of Present Illness - General Date of Service: 03/01/19 Admit Problem/Dx: leg swelling and pain with walking. Malaise and feeling tired. No shortness of breath. Source of Information: Patient History Limitations: Reports: No Limitations - History of Present Illness Initial Comments - Free Text/Narative: slower onset of left leg pain over the last few days. More pain today. No overt redness and minimal swelling. Mostly pain with dorsiflexion and walking. Mild shortness of breath with walking and activity. At rest is at 100% sat. Stayed with us for one night post right breast reconstruction. No overt swelling or much bleeding at all. Patient has been trying to care for her drains. Here with blood crusted on shirt and pants as well as around the drains themselves with an old dressing in place. She states the last time she emptied or drained was yesterday. She has been taking antibiotics. RIght breast is much more swollen than I would expect and the drains have old dark red blood from likely hematoma. She states the right breast was more swollen about 3 days after surgery. Skin is yellow and without compromise. Patient denies pain in the breast and states she has been able to sleep more in the past few days with decreased pain. Left breast has no pain, no swelling or hematoma. Onset of Symptoms: Reports: Today, Gradual Duration of Symptoms: Reports: Hour(s): Quality: Reports: Pressure Severity: Moderate Improves with: Reports: Rest Worsens with: Reports: Movement Context: Reports: Other (recent surgery 1 week ago). Denies: Sick Contact Associated Symptoms: Reports: Shortness of Breath (mild with exertion). Denies : Rash Left Lower Leg Pain Score (Numeric/FACES): 1 - Related Data Allergies/Adverse Reactions: Allergies Allergy/AdvReac Type Severity Reaction Status Date / Time No Known Allergies Allergy Verified 03/01/19 12:01 Home Medications: Home Meds Calcium Polycarbophil [Fiber Laxative] 625 mg PO DAILY 02/21/19 [History] Past Medical History - Past Health History Medical/Surgical History: Denies Medical/Surgical History HEENT History: Reports: Cataract, Hard of Hearing, Other (See Below) Other HEENT History: uses reading glasses, has upper full denture and lo0wer removable partial denture Respiratory History: Reports: Other (See Below) Other Respiratory History: former smoker, has SOB with activity (ventolin inhaler prn), can wall 2 blocks without problems Gastrointestinal History: Reports: Other (See Below) Other Gastrointestinal History: occasional heartburn- takes TUMS Genitourinary History: Reports: None [employer] History: Reports: Musculoskeletal History: Reports: Arthritis, Fracture Other Musculoskeletal History: hx of fx left foot and toe Psychiatric History: Reports: Anxiety, Depression Other Psychiatric History: hx alcohol abuse Oncologic (Cancer) History: Reports: Breast, Uterine - Past Surgical History Head Surgeries/Procedures: Reports: None HEENT Surgical History: Reports: Cataract Surgery, Tonsillectomy GI Surgical History: Reports: Colonoscopy Female Surgical History: Reports: Breast Biopsy, Hysterectomy, Salpingo- Oophorectomy Musculoskeletal Surgical History: Reports: ORIF Other Musculoskeletal Surgeries/Procedures:: ORIF left foot- denies hardware Oncologic Surgical History: Reports: Lumpectomy, Other (See Below) Other Oncologic Surgeries/Procedures: Hysterectomy, BSO Social & Family History - Family History Family Medical History: Noncontributory - Caffeine Use Caffeine Use: Reports: Soda H&P Review of Systems - Review of Systems: Review Of Systems: See Below General: Reports: Fatigue. Denies: Fever, Chills HEENT: Reports: No Symptoms Pulmonary: Reports: Shortness of Breath (with activity) Gastrointestinal: Reports: No Symptoms Genitourinary: Reports: No Symptoms Musculoskeletal: Reports: Leg Pain, Muscle Pain Skin: Reports: Bruising (resolving on right breast with yellowing of the skin. Blanching nicely and no skin compromise. ) Psychiatric: Reports: No Symptoms Neurological: Reports: No Symptoms Hematologic/Lymphatic: Reports: No Symptoms Immunologic: Reports: No Symptoms Exam - Exam Exam: See Below - Vital Signs Vital Signs: Last Vital Signs Temp 97.2 F 03/01/19 11:58 Pulse 83 03/01/19 11:58 Resp 18 03/01/19 11:58 BP 159/71 H 03/01/19 11:58 Pulse Ox 98 03/01/19 11:58 Weight: 120 lb - Exam Quality Assessment: No: Supplemental Oxygen General: Alert, Oriented, Cooperative HEENT: EOMI Lungs: Clear to Auscultation, Normal Respiratory Effort (no shortness of breath currently and sats are 100%) Cardiovascular: Regular Rate, Regular Rhythm GI/Abdominal Exam: Soft Extremities: Mart's Sign (left calf pain and tenderness with palpation. more medial than lateral gastroc area), Leg Pain. No: Pedal Edema, Limited Range of Motion, Redness Peripheral Pulses: 2+: Femoral (L), Femoral (R), Dorsalis Pedis (L), Dorsalis Pedis (R) Skin: Warm, Dry, Incision (clean and intact. Steristrips ion place. Thr giht lateral Jeferson sites are clean but crusted hematoma and old dressings. Drain buulbs are full of air and clots in the drain tubes themselves. Old blood in color. Right breast is yellow with a significnat amount of swelling in comparison with POD 1 in the hospital. Discussed cares and she has not drainaed or stripped since yesterday. About 20cc of old blood currently. Dark red. ) Neuro Extensive - Mental Status: Alert, Oriented x3 Psychiatric: Alert, Normal Affect - Patient Data Imaging Impressions Last 24 hrs: CT pe protocol LE duplex *Q Meaningful Use (ADM) - VTE *Q VTE Mechanical Contraindications *Q: DT, Suspected - VTE Risk Assess *Q Each Risk Factor Represents 1 Point: History of prior major surgery less than 1 month, Swollen Legs, Current Total Score 1 Point Risk Factors: 2 Each Risk Factor Represents 2 Points: Age 60 - 74 Years, Malignancy (present or previous) Total Score 2 Point Risk Factors: 4 Each Risk Factor Represents 3 Points: None Total Score 3 Point Risk Factors: 0 Each Risk Factor Represents 5 Points: None Total Score 5 Point Risk Factors: 0 Venous Thromboembolism Risk Factor Score *Q: 6 - Problem List (1) Leg pain, posterior SNOMED Code(s): 06782560 ICD Code: M79.606 - PAIN IN LEG, UNSPECIFIED Status: Acute Current Visit : Yes Qualifiers: Laterality: left Qualified Code(s): M79.605 - Pain in left leg (2) Suspected DVT (deep vein thrombosis) SNOMED Code(s): 146594558 ICD Code: R09.89 - OTH SYMPTOMS AND SIGNS INVOLVING THE CIRC AND RESP SYSTEMS Status: Suspected Current Visit: Yes (3) Admission for breast reconstruction following mastectomy SNOMED Code(s): 490236867, 803359103 ICD Code: Z42.1 - ENCOUNTER FOR BREAST RECONSTRUCTION FOLLOWING MASTECTOMY Status: Acute Priority: Medium Current Visit: No Problem List Initiated/Reviewed/Updated: Yes Orders Last 24hrs: Active Orders 24 hr Category Date Time Status Venous Doppler Lwr Ext Bi [US] Stat Exams 03/01/19 11:59 Ordered BASIC METABOLIC PANEL,BMP [CHEM] Stat Lab 03/01/19 11:59 Ordered CBC WITH AUTO DIFF [HEME] Stat Lab 03/01/19 11:59 Ordered D Dimer [D-DIMER QUANTITATIVE] [COAG] Stat Lab 03/01/19 11:[address] PE protocol ordered Assessment/Plan Comment:: Will evaluate for DVT and PE. Also discussed drain cares. i do not think she has been doing these. The drains were full of air and not compressed, and the plugs were crusted shut. This makes sense with hematoma formation in a delayed fashion and the old blood we now see draining with appropriate stripping. Crusted ABD pad on the chest wall. Blood on shirt and pants. We discussed cares and she has not showered or done any cares today. Sleeping and resting well. Denies pain aside from the left leg. We discussed risks and workup of this. All questions answered and discussed with Dr Powers as well. Patient called this am and presented to the ER 3 hours later. She had fallen back asleep at home. We discussed any other symptoms and she denies at this time.
[2019-03-01 12:55] LABS: CHLORIDE,CL 109 mmol/L (98-107); SODIUM,NA 144 mmol/L (136-145)
--- NOTE | 2019-03-01 13:14 | US ---
ULTRASOUND EXAMINATION OF the left and right lower extremity WITH DOPPLER HISTORY: Swelling FINDINGS: Examination of the left and right legs were performed from the groin to the calf region. All visualized segments including common femoral, proximal greater saphenous, superficial femoral, popliteal and calf veins appear patent with good compressibility and augmentation. There is no evidence of deep vein thrombosis. IMPRESSION: No evidence of a DVT.
--- NOTE | 2019-03-01 13:25 | PCM.SN ---
- Free Text/Narrative Note: DVT negative on ultrasound but slightly elevated D Dimer - general post op and right breast hematoma, so likely from this. Will get CT to rule out PE, though sats at 100%. Hb slightly low and platelets ok. Will watch this.
[2019-03-01] MEDS ORDERED: Iopamidol 755 MG/ML 500 ML Multipack Bottle IVPUSH ONE (14:22)
--- NOTE | 2019-03-01 14:24 | CT ---
EXAMINATION: CTA chest HISTORY: Shortness of breath COMPARISON: None TECHNIQUE: Axial CT imaging obtained through the chest following the administration of 50 mL of Isovue-370. Coronal and sagittal reconstructions obtained. FINDINGS: There is a trace interlobular septal thickening within the lung apices. There is mild atelectasis with a trace left pleural effusion. The heart is normal in size without a pericardial effusion. Thoracic aorta is normal in caliber. Main and central pulmonary arteries are patent. No mediastinal, hilar, or axillary lymphadenopathy. Postsurgical changes are noted within the right breast with an implant noted. There is a moderate overlying subcutaneous hematoma. Persistent postoperative subcutaneous gas within the right axillary region. Central airways are clear. No suspicious osseous abnormalities identified. IMPRESSION: 1. No pulmonary embolism identified. 2. Trace left pleural effusion. 3. Postoperative changes noted within the right breast with a moderate underlying hematoma.
--- NOTE | 2019-03-01 14:28 | PCM.SN ---
- Free Text/Narrative Note: CT negative. Hematoma visualized on the right breast. Discussed drain cares and she has not been doing much of this at home. We discussed that the drains are in appropriate position and the bulb suction and stripping could have helped with this. She understands and we used the suction to evacuate what we could today through the bulbs and will watch overnight. Decision in AM for evacuation of the hematoma. Discussed with Dr Powers and she will admit for observation. We will continue to follow and assist.
[2019-03-01] MEDS ORDERED: Sodium Chloride 0.9% 2.5 ML Syringe FLUSH PRN (14:36)
[2019-03-01] MEDS ORDERED: Sodium Chloride 0.9% 10 ML SDV IV PRN (14:36)
[2019-03-01] MEDS ORDERED: Ondansetron 4 MG/2 ML SDV IVPUSH PRN (14:36)
[2019-03-01] MEDS ORDERED: Sodium Chloride 0.9% 10 ML Syringe FLUSH PRN (14:36)
--- NOTE | 2019-03-01 14:36 | PCM.HP ---
H&P History of Present Illness - General Date of Service: 03/01/19 Admit Problem/Dx: leg swelling and pain with walking. Malaise and feeling tired. No shortness of breath. Source of Information: Patient History Limitations: Reports: No Limitations - History of Present Illness Initial Comments - Free Text/Narative: Patient is a 69 year old female who presents with complaints of SOB and leg pain. She had surgery 1 week ago for breast cancer. She had a mastectomy with immediate reconstruction and a symmetry procedure. She was watched in the hospital overnight and discharged home the next day. She came to the ER and was found to have the same dressings on since discharge. She had full drains and has not been caring for them at home. She has not been recording output. She denies fevers or chills. She denies leg swelling. Left Lower Leg Pain Score (Numeric/FACES): 1 - Related Data Allergies/Adverse Reactions: Allergies Allergy/AdvReac Type Severity Reaction Status Date / Time No Known Allergies Allergy Verified 03/01/19 12:01 Home Medications: Home Meds Calcium Polycarbophil [Fiber Laxative] 625 mg PO DAILY 02/21/19 [History] Past Medical History - Past Health History Medical/Surgical History: Denies Medical/Surgical History HEENT History: Reports: Cataract, Hard of Hearing, Other (See Below) Other HEENT History: uses reading glasses, has upper full denture and lo0wer removable partial denture Respiratory History: Reports: Other (See Below) Other Respiratory History: former smoker, has SOB with activity (ventolin inhaler prn), can wall 2 blocks without problems Gastrointestinal History: Reports: Other (See Below) Other Gastrointestinal History: occasional heartburn- takes TUMS Genitourinary History: Reports: None [employer] History: Reports: Musculoskeletal History: Reports: Arthritis, Fracture Other Musculoskeletal History: hx of fx left foot and toe Psychiatric History: Reports: Anxiety, Depression Other Psychiatric History: hx alcohol abuse Oncologic (Cancer) History: Reports: Breast, Uterine - Infectious Disease History Infectious Disease History: Reports: Chicken Pox, Measles, Mumps - Past Surgical History Head Surgeries/Procedures: Reports: None HEENT Surgical History: Reports: Cataract Surgery, Tonsillectomy GI Surgical History: Reports: Colonoscopy Female Surgical History: Reports: Breast Biopsy, Breast Implant, Breast Reconstruction, Hysterectomy, Salpingo-Oophorectomy Musculoskeletal Surgical History: Reports: ORIF Other Musculoskeletal Surgeries/Procedures:: ORIF left foot- denies hardware Oncologic Surgical History: Reports: Lumpectomy, Other (See Below) Other Oncologic Surgeries/Procedures: Hysterectomy, BSO Social & Family History - Family History Family Medical History: Noncontributory - Tobacco Use Smoking Status *Q: Former Smoker Used Tobacco, but Quit: Yes Month/Year Tobacco Last Used: 2008 - Caffeine Use Caffeine Use: Reports: Soda - Recreational Drug Use Recreational Drug Use: No H&P Review of Systems - Review of Systems: Review Of Systems: ROS reveals no pertinent complaints other than HPI. Exam - Exam Exam: See Below - Vital Signs Vital Signs: Last Vital Signs Temp 36.2 C 03/01/19 11:58 Pulse 83 03/01/19 11:58 Resp 18 03/01/19 11:58 BP 159/71 H 03/01/19 11:58 Pulse Ox 98 03/01/19 11:58 Weight: 54.431 kg - Exam General: Alert, Oriented, Cooperative HEENT: Conjunctiva Clear, Mucosa Moist & [place], Posterior Pharynx Clear Lungs: Clear to Auscultation, Normal Respiratory Effort Cardiovascular: Regular Rate, Regular Rhythm GI/Abdominal Exam: Soft Rectal (Female) Exam: Normal Exam Back Exam: Normal Inspection Extremities: Normal Inspection Skin: Warm, Dry, Intact Neuro Extensive - Mental Status: Alert, Oriented x3, Normal Mood/Affect Physical Exam Comments:: Breast on right is larger than left. There are [address] When stripped a fair amount of old blood comes out. Her skin over the right breast is green yellow with resolving ecchymosis. Steri-strips are in place. Skin is not tight. No evidence of infection. - Patient Data Lab Results Last 24 hrs: Laboratory Results - last 24 hr 03/01/19 03/01/19 03/01/19 Range/Units 12:24 12:24 12:24 WBC 9.62 (4.0-11.0) K/uL RBC 2.76 L (4.30-5.90) M/uL Hgb 8.5 L (12.0-16.0) g/dL Hct 27.0 L (36.0-46.0) % MCV 97.8 (80.0-98.0) fL MCH 30.8 (27.0-32.0) pg MCHC 31.5 (31.0-37.0) g/dL RDW Std Deviation 52.5 (28.0-62.0) fl RDW Coeff of Paulette 16 H (11.0-15.0) % Plt Count 308 (150-400) K/uL MPV 11.40 (7.40-12.00) fL Neut % (Auto) 60.9 (48.0-80.0) % Lymph % (Auto) 22.2 (16.0-40.0) % [place] % (Auto) 12.9 (0.0-15.0) % Eos % (Auto) 3.5 (0.0-7.0) % Baso % (Auto) 0.5 (0.0-1.5) % Neut # (Auto) 5.9 H (1.4-5.7) K/uL Lymph # (Auto) 2.1 (0.6-2.4) K/uL [place] # (Auto) 1.2 H (0.0-0.8) K/uL Eos # (Auto) 0.3 (0.0-0.7) K/uL Baso # (Auto) 0.1 (0.0-0.1) K/uL Nucleated RBC % 0.0 /100WBC Nucleated RBCs # 0 K/uL D-Dimer, Quantitative 1.21 H (0.0-0.50) mg/L FEU Sodium 144 (136-145) mmol/L Potassium 4.5 (3.5-5.1) mmol/L Chloride 109 H (98-107) mmol/L Carbon Dioxide 27.2 (21.0-32.0) mmol/L BUN 17 (7.0-18.0) mg/dL Creatinine 0.8 (0.6-1.0) mg/dL Est Cr Clr Drug Dosing 55.42 mL/min Estimated GFR (MDRD) > 60.0 ml/min Glucose 91 (74-106) mg/dL Calcium 8.5 (8.5-10.1) mg/dL Result Diagrams: 03/01/19 12:24 03/01/19 12:24 *Q Meaningful Use (ADM) - VTE *Q VTE Mechanical Contraindications *Q: DT, Suspected - Problem List (1) Anemia SNOMED Code(s): 628574958 ICD Code: D64.9 - ANEMIA, UNSPECIFIED Status: Acute Current Visit: Yes (2) Hematoma (nontraumatic) of breast SNOMED Code(s): 286726208 ICD Code: N64.89 - OTHER SPECIFIED DISORDERS OF BREAST Status: Acute Current Visit: Yes (3) Breast cancer SNOMED Code(s): 445269099 ICD Code: C50.919 - MALIGNANT NEOPLASM OF UNSP SITE OF UNSPECIFIED FEMALE BREAST Status: Acute Current Visit: No Qualifiers: Breast location: upper outer quadrant of breast Estrogen receptor status: unspecified Patient sex: female Laterality: right Qualified Code(s): C50.411 - Malignant neoplasm of upper-outer quadrant of right female breast Problem List Initiated/Reviewed/Updated: Yes Orders Last 24hrs: Active Orders 24 hr Category Date Time Status Patient Status [ADT] Stat ADT 03/01/19 14:15 Active Assessment/Plan Comment:: Vitals were stable. CBC shows anemia with hgb of 8.5. This is likely from post operative hematoma of the right breast. Plts are 300k. US and CT angio show no evidence of DVT and PE respectively. She has a large hematoma of the right breast. This is likely due to poor wound and drain cares after discharge. The drains are in the middle of the hematoma. Patient will be admitted overnight for drain cares and close monitoring. Will have nurses perform q1hr drain stripping and emptying while awake. Outputs need to be clearly documented. Hopefully this is enough to drain the hematoma. If there is not much output overnight, Dr. Fleming may take patient in am for a washout. She will be NPO after midnight. Will also prescribe her prophylactic antibiotics. Will recheck labs in am as well. Patient is reluctant to stay but I explained to her the serious consequences of not resolving this including infection, implant complications and/or repeat operations. She was then amenable to being watched.
[2019-03-01] MEDS: Cephalexin 500 MG Cap PO SCH ×2 (17:39→23:12)
[2019-03-01] MEDS: Acetaminophen/HYDROcodone 325-5 MG Tab PO PRN (23:12)
[2019-03-02] MEDS: Cephalexin 500 MG Cap PO SCH ×4 (06:05→23:04)
--- NOTE | 2019-03-02 08:49 | PCM.PREANE ---
Preanesthetic Assessment - Anesthesia/Transfusion/Family Hx Anesthesia History: Prior Anesthesia Without Reaction Family History of Anesthesia Reaction: No Transfusion History: No Prior Transfusion(s) Intubation History: Unknown - Review of Systems General: No Symptoms Pulmonary: No Symptoms Cardiovascular: No Symptoms Gastrointestinal: No Symptoms Neurological: No Symptoms Other: Reports: None - Physical Assessment NPO Status Date: 03/01/19 O2 Sat by Pulse Oximetry: 99 Respiratory Rate: 16 Vital Signs: Last Vital Signs Temp 97.5 F 03/02/19 07:31 Pulse 68 03/02/19 07:31 Resp 16 03/02/19 07:31 BP 124/56 L 03/02/19 07:31 Pulse Ox 99 03/02/19 07:31 Height: 5 ft 4 in Weight: 55.508 kg ASA Class: 2 Mental Status: Alert & Oriented x3 Airway Class: Mallampati = 2 Dentition: Reports: Dentures, Partial ROM/Head Extension: Full Lungs: Clear to Auscultation, Normal Respiratory Effort Cardiovascular: Regular Rate, Regular Rhythm - Lab Values: Laboratory Last Values WBC 9.62 K/uL (4.0-11.0) 03/01/19 12:24 RBC 2.76 M/uL (4.30-5.90) L 03/01/19 12:24 Hgb 8.5 g/dL (12.0-16.0) L 03/01/19 12:24 Hct 27.0 % (36.0-46.0) L 03/01/19 12:24 MCV 97.8 fL (80.0-98.0) 03/01/19 12:24 MCH 30.8 pg (27.0-32.0) 03/01/19 12:24 MCHC 31.5 g/dL (31.0-37.0) 03/01/19 12:24 RDW Std Deviation 52.5 fl (28.0-62.0) 03/01/19 12:24 RDW Coeff of Paulette 16 % (11.0-15.0) H 03/01/19 12:24 Plt Count 308 K/uL (150-400) 03/01/19 12:24 MPV 11.40 fL (7.40-12.00) 03/01/19 12:24 Neut % (Auto) 60.9 % (48.0-80.0) 03/01/19 12:24 Lymph % (Auto) 22.2 % (16.0-40.0) 03/01/19 12:24 [place] % (Auto) 12.9 % (0.0-15.0) 03/01/19 12:24 Eos % (Auto) 3.5 % (0.0-7.0) 03/01/19 12:24 Baso % (Auto) 0.5 % (0.0-1.5) 03/01/19 12:24 Neut # (Auto) 5.9 K/uL (1.4-5.7) H 03/01/19 12:24 Lymph # (Auto) 2.1 K/uL (0.6-2.4) 03/01/19 12:24 [place] # (Auto) 1.2 K/uL (0.0-0.8) H 03/01/19 12:24 Eos # (Auto) 0.3 K/uL (0.0-0.7) 03/01/19 12:24 Baso # (Auto) 0.1 K/uL (0.0-0.1) 03/01/19 12:24 Nucleated RBC % 0.0 /100WBC 03/01/19 12:24 Nucleated RBCs # 0 K/uL 03/01/19 12:24 D-Dimer, Quantitative 1.21 mg/L FEU (0.0-0.50) H 03/01/19 12:24 Sodium 144 mmol/L (136-145) 03/01/19 12:24 Potassium 4.5 mmol/L (3.5-5.1) 03/01/19 12:24 Chloride 109 mmol/L (98-107) H 03/01/19 12:24 Carbon Dioxide 27.2 mmol/L (21.0-32.0) 03/01/19 12:24 BUN 17 mg/dL (7.0-18.0) 03/01/19 12:24 Creatinine 0.8 mg/dL (0.6-1.0) 03/01/19 12:24 Est Cr Clr Drug Dosing 55.42 mL/min 03/01/19 12:24 Estimated GFR (MDRD) > 60.0 ml/min 03/01/19 12:24 Glucose 91 mg/dL (74-106) 03/01/19 12:24 Calcium 8.5 mg/dL (8.5-10.1) 03/01/19 12:24 - Allergies Allergies/Adverse Reactions: Allergies Allergy/AdvReac Type Severity Reaction Status Date / Time No Known Allergies Allergy Verified 03/01/19 12:01 - Blood Blood Available: No - Anesthesia Plan Pre-Op Medication Ordered: None - Acknowledgements Anesthesia Type Planned: General Anesthesia Pt an Appropriate Candidate for the Planned Anesthesia: Yes Alternatives and Risks of Anesthesia Discussed w Pt/Guardian: Yes Pt/Guardian Understands and Agrees with Anesthesia Plan: Yes Additional Comments: PMH: post op wound hematoma, anemia 8.5, chronic ETIENNE, gerd, anx/dep, hx of AUD, LEG PAIN- dvt RULED OUT YESTERDAY. PLAN: GA-LMA PreAnesthesia Questionnaire - Past Health History Medical/Surgical History: Denies Medical/Surgical History HEENT History: Reports: Cataract, Hard of Hearing, Other (See Below) Other HEENT History: uses reading glasses, has upper full denture and lo0wer removable partial denture Cardiovascular History: Reports: None Respiratory History: Reports: Other (See Below) Other Respiratory History: former smoker, has SOB with activity (ventolin inhaler prn), can wall 2 blocks without problems Gastrointestinal History: Reports: Other (See Below) Other Gastrointestinal History: occasional heartburn- takes TUMS Genitourinary History: Reports: None 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: Musculoskeletal History: Reports: Arthritis, Fracture Other Musculoskeletal History: hx of fx left foot and toe Neurological History: Reports: None Psychiatric History: Reports: None Other Psychiatric History: hx alcohol abuse Endocrine/Metabolic History: Reports: None Hematologic History: Reports: None Oncologic (Cancer) History: Reports: Breast, Uterine Dermatologic History: Reports: None - Infectious Disease History Infectious Disease History: Reports: Chicken Pox, Measles, Mumps - Past Surgical History Head Surgeries/Procedures: Reports: None HEENT Surgical History: Reports: Cataract Surgery, Tonsillectomy GI Surgical History: Reports: Colonoscopy Female Surgical History: Reports: Breast Biopsy, Breast Implant, Breast Reconstruction, Hysterectomy, Salpingo-Oophorectomy Musculoskeletal Surgical History: Reports: ORIF Other Musculoskeletal Surgeries/Procedures:: ORIF left foot- denies hardware Oncologic Surgical History: Reports: Lumpectomy, Mastectomy, Other (See Below) Other Oncologic Surgeries/Procedures: Hysterectomy, BSO - SUBSTANCE USE Smoking Status *Q: Never Smoker Second Hand Smoke Exposure: No Recreational Drug Use History: No - HOME MEDS Home Medications: Home Meds Calcium Polycarbophil [Fiber Laxative] 625 mg PO DAILY 02/21/19 [History] - CURRENT (IN HOUSE) MEDS Current Meds: Current Medications Hydrocodone Bitart/Acetaminophen ([place]ram[place] 325-5 Mg) 2 tab PO Q4H PRN PRN Reason: Pain (moderate 4-6) Last Admin: 03/01/19 23:12 Dose: 1 tab Cephalexin (Keflex) 500 mg PO Q6HR LYNNETTE Last Admin: 03/02/19 06:05 Dose: 500 mg Ondansetron HCl (Zofran) 4 mg IVPUSH Q6H PRN PRN Reason: Nausea/Vomiting Sodium Chloride (Saline Flush) 10 ml FLUSH ASDIRECTED PRN PRN Reason: Keep Vein Open Sodium Chloride (Saline Flush) 2.5 ml FLUSH ASDIRECTED PRN PRN Reason: Keep Vein Open Sodium Chloride (Normal Saline) 10 ml IV ASDIRECTED PRN PRN Reason: IV Use Discontinued Medications Iopamidol (Isovue Multipack-370 (76%)) 50 ml IVPUSH ONETIME ONE Stop: 03/01/19 14:23 Last Admin: 03/01/19 14:22 Dose: 50 ml
[2019-03-02] MEDS ORDERED: Bupivacaine 25%/EPINEPHrine/PF 30 ML ONE (09:13)
[2019-03-02 09:41] LABS: CHLORIDE,CL 108 mmol/L (98-107); SODIUM,NA 143 mmol/L (136-145)
[2019-03-02] MEDS ORDERED: fentaNYL 250 MCG/5 ML SDV ONE (09:43)
[2019-03-02] MEDS ORDERED: Midazolam 1 MG/ML 2 ML SDV ONE (09:43)
[2019-03-02] MEDS ORDERED: Propofol 200 MG/20 ML SDV ONE (09:43)
[2019-03-02] MEDS ORDERED: Dexamethasone 4 MG/ML 5 ML MDV ONE (09:44)
[2019-03-02] MEDS ORDERED: Ondansetron 4 MG/2 ML SDV ONE (09:44)
[2019-03-02] MEDS ORDERED: fentaNYL 100 MCG/2 ML SDV IVPUSH PRN (10:06)
--- NOTE | 2019-03-02 10:19 | PCM.PN ---
- General Info Date of Service: 03/02/19 Subjective Update: Patient stable overnight with no acute events. Drain output scant and minimal. Patient going to OR for washout today with plastics. Functional Status: Reports: Pain Controlled, Tolerating Diet, Ambulating - Review of Systems General: Reports: No Symptoms HEENT: Reports: No Symptoms Pulmonary: Reports: No Symptoms Cardiovascular: Reports: No Symptoms Gastrointestinal: Reports: No Symptoms - Patient Data Vitals - Most Recent: Last Vital Signs Temp 36.4 C 03/02/19 07:31 Pulse 68 03/02/19 07:31 Resp 16 03/02/19 08:49 BP 124/56 L 03/02/19 07:31 Pulse Ox 99 03/02/19 08:49 Weight - Most Recent: 55.508 kg I&O - Last 24 Hours: Intake & Output 03/01/19 03/02/19 03/02/19 22:59 06:59 14:59 Intake Total 0 350 Output Total 335 325 Balance -335 25 Lab Results Last 24 Hours: Laboratory Results - last 24 hr 03/01/19 03/01/19 03/01/19 Range/Units 12:24 12:24 12:24 WBC 9.62 (4.0-11.0) K/uL RBC 2.76 L (4.30-5.90) M/uL Hgb 8.5 L (12.0-16.0) g/dL Hct 27.0 L (36.0-46.0) % MCV 97.8 (80.0-98.0) fL MCH 30.8 (27.0-32.0) pg MCHC 31.5 (31.0-37.0) g/dL RDW Std Deviation 52.5 (28.0-62.0) fl RDW Coeff of Paulette 16 H (11.0-15.0) % Plt Count 308 (150-400) K/uL MPV 11.40 (7.40-12.00) fL Neut % (Auto) 60.9 (48.0-80.0) % Lymph % (Auto) 22.2 (16.0-40.0) % [place] % (Auto) 12.9 (0.0-15.0) % Eos % (Auto) 3.5 (0.0-7.0) % Baso % (Auto) 0.5 (0.0-1.5) % Neut # (Auto) 5.9 H (1.4-5.7) K/uL Lymph # (Auto) 2.1 (0.6-2.4) K/uL [place] # (Auto) 1.2 H (0.0-0.8) K/uL Eos # (Auto) 0.3 (0.0-0.7) K/uL Baso # (Auto) 0.1 (0.0-0.1) K/uL Nucleated RBC % 0.0 /100WBC Nucleated RBCs # 0 K/uL INR APTT (18.6-31.3) SEC D-Dimer, Quantitative 1.21 H (0.0-0.50) mg/L FEU Sodium 144 (136-145) mmol/L Potassium 4.5 (3.5-5.1) mmol/L Chloride 109 H (98-107) mmol/L Carbon Dioxide 27.2 (21.0-32.0) mmol/L BUN 17 (7.0-18.0) mg/dL Creatinine 0.8 (0.6-1.0) mg/dL Est Cr Clr Drug Dosing 55.42 mL/min Estimated GFR (MDRD) > 60.0 ml/min Glucose 91 (74-106) mg/dL Calcium 8.5 (8.5-10.1) mg/dL Total Bilirubin (0.2-1.0) mg/dL AST (15-37) IU/L ALT (14-63) IU/L Alkaline Phosphatase (46-116) U/L Total Protein (6.4-8.2) g/dL Albumin (3.4-5.0) g/dL Globulin (2.6-4.0) g/dL Albumin/Globulin Ratio (0.9-1.6) 03/02/19 03/02/19 03/02/19 Range/Units 09:00 09:00 09:00 WBC 6.31 (4.0-11.0) K/uL RBC 2.85 L (4.30-5.90) M/uL Hgb 8.7 L (12.0-16.0) g/dL Hct 28.0 L (36.0-46.0) % MCV 98.2 H (80.0-98.0) fL MCH 30.5 (27.0-32.0) pg MCHC 31.1 (31.0-37.0) g/dL RDW Std Deviation 52.9 (28.0-62.0) fl RDW Coeff of Paulette 16 H (11.0-15.0) % Plt Count 297 (150-400) K/uL MPV 10.90 (7.40-12.00) fL Neut % (Auto) (48.0-80.0) % Lymph % (Auto) (16.0-40.0) % [place] % (Auto) (0.0-15.0) % Eos % (Auto) (0.0-7.0) % Baso % (Auto) (0.0-1.5) % Neut # (Auto) (1.4-5.7) K/uL Lymph # (Auto) (0.6-2.4) K/uL [place] # (Auto) (0.0-0.8) K/uL Eos # (Auto) (0.0-0.7) K/uL Baso # (Auto) (0.0-0.1) K/uL Nucleated RBC % 0.0 /100WBC Nucleated RBCs # 0 K/uL INR 0.96 APTT 28.0 (18.6-31.3) SEC D-Dimer, Quantitative (0.0-0.50) mg/L FEU Sodium 143 (136-145) mmol/L Potassium 3.6 (3.5-5.1) mmol/L Chloride 108 H (98-107) mmol/L Carbon Dioxide 26.9 (21.0-32.0) mmol/L BUN 16 (7.0-18.0) mg/dL Creatinine 0.9 (0.6-1.0) mg/dL Est Cr Clr Drug Dosing 49.51 mL/min Estimated GFR (MDRD) > 60.0 ml/min Glucose 89 (74-106) mg/dL Calcium 8.3 L (8.5-10.1) mg/dL Total Bilirubin 0.6 (0.2-1.0) mg/dL AST 41 H (15-37) IU/L ALT 46 (14-63) IU/L Alkaline Phosphatase 77 (46-116) U/L Total Protein 6.3 L (6.4-8.2) g/dL Albumin 2.7 L (3.4-5.0) g/dL Globulin 3.6 (2.6-4.0) g/dL Albumin/Globulin Ratio 0.8 L (0.9-1.6) Med Orders - Current: Current Medications Hydrocodone Bitart/Acetaminophen ([place] 325-5 Mg) 2 tab PO Q4H PRN PRN Reason: Pain (moderate 4-6) Last Admin: 03/01/19 23:12 Dose: 1 tab Cephalexin (Keflex) 500 mg PO Q6HR LYNNETTE Last Admin: 03/02/19 06:05 Dose: 500 mg Fentanyl (Sublimaze) 50 mcg IVPUSH Q5M PRN PRN Reason: Pain (severe 7-10) Stop: 03/02/19 13:00 Ondansetron HCl (Zofran) 4 mg IVPUSH Q6H PRN PRN Reason: Nausea/Vomiting Sodium Chloride (Saline Flush) 10 ml FLUSH ASDIRECTED PRN PRN Reason: Keep Vein Open Sodium Chloride (Saline Flush) 2.5 ml FLUSH ASDIRECTED PRN PRN Reason: Keep Vein Open Sodium Chloride (Normal Saline) 10 ml IV ASDIRECTED PRN PRN Reason: IV Use Discontinued Medications Dexamethasone (Dexamethasone) Confirm Administered Dose 20 mg .ROUTE .STK-MED ONE Stop: 03/02/19 09:45 Fentanyl (Sublimaze) Confirm Administered Dose 250 mcg .ROUTE .STK-MED ONE Stop: 03/02/19 09:44 Bupivacaine HCl/Epinephrine Bitart (Sensorc Mpf 0.25%-Epi 1:[id number]) Confirm Administered Dose 30 mls @ as directed .ROUTE .STK-MED ONE Stop: 03/02/19 09:14 Lidocaine HCl (Xylocaine-Mpf 1%) Confirm Administered Dose 5 mls @ as directed .ROUTE .STK-MED ONE Stop: 03/02/19 09:45 Iopamidol (Isovue Multipack-370 (76%)) 50 ml IVPUSH ONETIME ONE Stop: 03/01/19 14:23 Last Admin: 03/01/19 14:22 Dose: 50 ml Midazolam HCl (Versed 1 Mg/Ml) Confirm Administered Dose 2 mg .ROUTE .STK-MED ONE Stop: 03/02/19 09:44 Ondansetron HCl (Zofran) Confirm Administered Dose 4 mg .ROUTE .STK-MED ONE Stop: 03/02/19 09:45 Propofol (Diprivan 20 Ml) Confirm Administered Dose 200 mg .ROUTE .STK-MED ONE Stop: 03/02/19 09:44 - Exam General: Alert, Oriented, Cooperative Lungs: Normal Respiratory Effort Cardiovascular: Regular Rate Skin: Ecchymosis (resolving on right breast. Scant bloody drainage from drains. ) - Problem List & Annotations (1) Anemia SNOMED Code(s): 260666726 Code(s): D64.9 - ANEMIA, UNSPECIFIED Status: Acute Current Visit: Yes (2) Hematoma (nontraumatic) of breast SNOMED Code(s): 857693140 Code(s): N64.89 - OTHER SPECIFIED DISORDERS OF BREAST Status: Acute Current Visit: Yes (3) Breast cancer SNOMED Code(s): 186825192 Code(s): C50.919 - MALIGNANT NEOPLASM OF UNSP SITE OF UNSPECIFIED FEMALE BREAST Status: Acute Current Visit: No Qualifiers: Breast location: upper outer quadrant of breast Estrogen receptor status: unspecified Patient sex: female Laterality: right Qualified Code(s): C50.411 - Malignant neoplasm of upper-outer quadrant of right female breast - Problem List Review Problem List Initiated/Reviewed/Updated: Yes - My Orders Last 24 Hours: My Active Orders 03/01/19 14:36 Patient Status [ADT] Routine Oxygen Therapy [RC] PRN RT Incentive Spirometry [RC] Q1HWA Up ad Arin [RC] ASDIRECTED Vital Signs [RC] PER UNIT ROUTINE Acetaminophen/HYDROcodone [[place]anton 325-5 MG] 2 tab PO Q4H PRN Ondansetron [Zofran] 4 mg IVPUSH Q6H PRN Sodium Chloride 0.9% [Normal Saline] 10 ml IV ASDIRECTED PRN Sodium Chloride 0.9% [Saline Flush] 10 ml FLUSH ASDIRECTED PRN Sodium Chloride 0.9% [Saline Flush] 2.5 ml FLUSH ASDIRECTED PRN Peripheral IV Insertion Adult [OM.PC] Urgent Resuscitation Status Routine 03/01/19 14:37 Intake and Output [RC] Q12H Notify Provider Vital Signs [RC] PRN 03/01/19 14:39 Communication Order [RC] STAT 03/01/19 18:00 cephALEXin [Keflex] 500 mg PO Q6HR 03/01/19 Dinner NPO After Midnight [Nothing per Oral After Midnight Diet] [DIET] - Assessment Assessment:: Will see how patient does after surgery. May keep overnight depending on discussion with plastics. May need close drain monitopring over the next 24 hours. Continue on keflex. - Plan Plan:: Vitals were stable. CBC shows anemia with hgb of 8.5. This is likely from post operative hematoma of the right breast. Plts are 300k. US and CT angio show no evidence of DVT and PE respectively. She has a large hematoma of the right breast. This is likely due to poor wound and drain cares after discharge. The drains are in the middle of the hematoma. Patient will be admitted overnight for drain cares and close monitoring. Will have nurses perform q1hr drain stripping and emptying while awake. Outputs need to be clearly documented. Hopefully this is enough to drain the hematoma. If there is not much output overnight, Dr. Fleming may take patient in am for a washout. She will be NPO after midnight. Will also prescribe her prophylactic antibiotics. Will recheck labs in am as well. Patient is reluctant to stay but I explained to her the serious consequences of not resolving this including infection, implant complications and/or repeat operations. She was then amenable to being watched.
[2019-03-02] MEDS ORDERED: Phenylephrine/Normal Saline 100 MCG/ML 10 ML Syringe ONE (10:28)
[2019-03-02] MEDS ORDERED: Sodium Chloride 0.9% 20 ML ONE (10:28)
[2019-03-02] MEDS ORDERED: ePHEDrine 50 MG/ML SDV ONE (10:28)
[2019-03-02] MEDS ORDERED: ceFAZolin 1 GM Vial ONE (10:31)
--- NOTE | 2019-03-02 11:23 | PCM.OPNOTE ---
- General Post-Op/Procedure Note Date of Surgery/Procedure: 03/02/19 Operative Procedure(s): incnision and drainage of right breast hemtoma - 300cc Pre Op Diagnosis: right breast hematoma Post-Op Diagnosis: Same Anesthesia Technique: General LMA, Local Primary Surgeon: Tawanna Fleming Rubber Mold Maker: Najma Diez Drain/Tube Comments:: drains in place and functioning well - in the middle of the heamtoma. Washed well and cleaned with irrigation both in pocket and in drains. Suction to remove any residuals. Superior drain is in front of [place] and inferior drain in below [place]. Complications: None Condition: Good Free Text/Narrative:: Intake & Output 03/01/19 03/02/19 03/02/19 23:59 07:59 15:59 Intake Total 0 350 700 Output Total 353 307 Balance -353 43 700
--- NOTE | 2019-03-02 11:30 | PCM.POSTAN ---
POST ANESTHESIA ASSESSMENT - MENTAL STATUS Mental Status: Alert, Oriented - RESPIRATORY Respiratory Status: Respiratory Rate WNL, Airway Patent, O2 Saturation Stable - CARDIOVASCULAR CV Status: Pulse Rate WNL, Blood Pressure Stable - GASTROINTESTINAL GI Status: No Symptoms - PAIN Pain Score: 0 - POST OP HYDRATION Hydration Status: Adequate & Stable
[2019-03-02] MEDS: Acetaminophen/HYDROcodone 325-5 MG Tab PO PRN (18:17)
[2019-03-03] MEDS: Cephalexin 500 MG Cap PO SCH (06:32)
[2019-03-03 07:39] VITALS: BP 119/56
--- NOTE | 2019-03-03 08:09 | PCM48HPAN ---
Post Anesthesia Note - EVALUATION WITHIN 48HRS OF ANESTHETIC Vital Signs in Normal Range: Yes Patient Participated in Evaluation: Yes Respiratory Function Stable: Yes Airway Patent: Yes Cardiovascular Function Stable: Yes Hydration Status Stable: Yes Pain Control Satisfactory: Yes Nausea and Vomiting Control Satisfactory: Yes Mental Status Recovered: Yes Resp Rate: 16 - COMMENTS/OBSERVATIONS Free Text/Narrative:: Patient reading a book and states she is doing well with pain under control. States her tooth that came out "was loose anyway and ready to come out"
--- NOTE | 2019-03-03 08:38 | PCM.DCSUM1 ---
Discharge Summary - Hospital Course Free Text/Narrative:: Patient is a 69 year old female who presented with shortness of breath and leg swelling. She was ruled out for DVT and PE. She was found to have a post operative hematoma of the right breast due to inadequate drain cares at home. Her hgb was 8.5. She was admitted. We tried to suction her drains and perform aggressive stripping but only scant fluid came out. She was taken to the OR for washout and new drains were placed. These had scant drainage overnight. This morning she is feeling well and offers no complaints. Her vitals are stable. Repeat labs yesterday morning were improved. She was cleared for discharge. - Discharge Data Discharge Date: 03/03/19 Discharge Disposition: Home, Self-Care 01 Condition: Good - Discharge Diagnosis/Problem(s) (1) Anemia SNOMED Code(s): 160630685 ICD Code: D64.9 - ANEMIA, UNSPECIFIED Status: Acute (2) Hematoma (nontraumatic) of breast SNOMED Code(s): 271928026 ICD Code: N64.89 - OTHER SPECIFIED DISORDERS OF BREAST Status: Resolved Priority: High (3) Breast cancer SNOMED Code(s): 638257863 ICD Code: C50.919 - MALIGNANT NEOPLASM OF UNSP SITE OF UNSPECIFIED FEMALE BREAST Status: Acute Qualifiers: Breast location: upper outer quadrant of breast Estrogen receptor status: unspecified Patient sex: female Laterality: right Qualified Code(s): C50.411 - Malignant neoplasm of upper-outer quadrant of right female breast - Patient Summary/Data Operative Procedure(s) Performed: incnision and drainage of right breast hemtoma - 300cc - Patient Instructions Diet: Usual Diet as Tolerated Activity: Apply Ice (as desired), No Lifting Over 10 Pounds, Rest and Relax Today Driving: Do Not Drive (while taking narcotics) Showering/Bathing: May Shower (after dressings removed on Thursday) Wound/Incision Care: Keep Operative Site/Wound Site Clean and Dry Notify Provider of: Fever, Increased Pain, Swelling and Redness, Drainage, Nausea and/or Vomiting - Discharge Plan *PRESCRIPTION DRUG MONITORING PROGRAM REVIEWED*: Yes *COPY OF PRESCRIPTION DRUG MONITORING REPORT IN PATIENT CASIMIRO: Yes Home Medications: Home Meds Calcium Polycarbophil [Fiber Laxative] 625 mg PO DAILY 02/21/19 [History] Acetaminophen/HYDROcodone [[place] 325-5 MG] 2 tab PO Q4H PRN tablet 03/02/19 [Rx ] cephALEXin [Keflex] 500 mg PO Q6HR cap 03/02/19 [Rx] Patient Handouts: [facility] Referrals: Tawanna Fleming MD [Emergency Provider] - 03/07/19 11:00 am Alyssa Powers MD [Physician] - - Discharge Summary/Plan Comment DC Time >30 min.: No - General Info Date of Service: 03/03/19 Functional Status: Reports: Pain Controlled, Tolerating Diet, Ambulating, Urinating - Review of Systems General: Reports: No Symptoms HEENT: Reports: No Symptoms Pulmonary: Reports: No Symptoms Cardiovascular: Reports: No Symptoms Gastrointestinal: Reports: No Symptoms Genitourinary: Reports: No Symptoms Musculoskeletal: Reports: No Symptoms - Patient Data Vitals - Most Recent: Last Vital Signs Temp 36.4 C 03/03/19 07:38 Pulse 62 03/03/19 07:38 Resp 16 03/03/19 08:09 BP 119/56 L 03/03/19 07:38 Pulse Ox 96 03/03/19 07:38 Weight - Most Recent: 55.508 kg I&O - Last 24 hours: Intake & Output 03/02/19 03/03/19 03/03/19 22:59 06:59 14:59 Intake Total 120 250 Output Total 1055 745 Balance -935 -792 Lab Results - Last 24 hrs: Laboratory Results - last 24 hr 03/02/19 03/02/19 03/02/19 Range/Units 09:00 09:00 09:00 WBC 6.31 (4.0-11.0) K/uL RBC 2.85 L (4.30-5.90) M/uL Hgb 8.7 L (12.0-16.0) g/dL Hct 28.0 L (36.0-46.0) % MCV 98.2 H (80.0-98.0) fL MCH 30.5 (27.0-32.0) pg MCHC 31.1 (31.0-37.0) g/dL RDW Std Deviation 52.9 (28.0-62.0) fl RDW Coeff of Paulette 16 H (11.0-15.0) % Plt Count 297 (150-400) K/uL MPV 10.90 (7.40-12.00) fL Nucleated RBC % 0.0 /100WBC Nucleated RBCs # 0 K/uL INR 0.96 APTT 28.0 (18.6-31.3) SEC Sodium 143 (136-145) mmol/L Potassium 3.6 (3.5-5.1) mmol/L Chloride 108 H (98-107) mmol/L Carbon Dioxide 26.9 (21.0-32.0) mmol/L BUN 16 (7.0-18.0) mg/dL Creatinine 0.9 (0.6-1.0) mg/dL Est Cr Clr Drug Dosing 49.51 mL/min Estimated GFR (MDRD) > 60.0 ml/min Glucose 89 (74-106) mg/dL Calcium 8.3 L (8.5-10.1) mg/dL Total Bilirubin 0.6 (0.2-1.0) mg/dL AST 41 H (15-37) IU/L ALT 46 (14-63) IU/L Alkaline Phosphatase 77 (46-116) U/L Total Protein 6.3 L (6.4-8.2) g/dL Albumin 2.7 L (3.4-5.0) g/dL Globulin 3.6 (2.6-4.0) g/dL Albumin/Globulin Ratio 0.8 L (0.9-1.6) Med Orders - Current: Current Medications Hydrocodone Bitart/Acetaminophen ([place] 325-5 Mg) 2 tab PO Q4H PRN PRN Reason: Pain (moderate 4-6) Last Admin: 03/02/19 18:17 Dose: 2 tab Cephalexin (Keflex) 500 mg PO Q6HR [facility] Last Admin: 03/03/19 06:32 Dose: 500 mg Ondansetron HCl (Zofran) 4 mg IVPUSH Q6H PRN PRN Reason: Nausea/Vomiting Sodium Chloride (Saline Flush) 10 ml FLUSH ASDIRECTED PRN PRN Reason: Keep Vein Open Sodium Chloride (Saline Flush) 2.5 ml FLUSH ASDIRECTED PRN PRN Reason: Keep Vein Open Sodium Chloride (Normal Saline) 10 ml IV ASDIRECTED PRN PRN Reason: IV Use Discontinued Medications Cefazolin Sodium (Ancef) Confirm Administered Dose 1 gm .ROUTE .STK-MED ONE Stop: 03/02/19 10:32 Dexamethasone (Dexamethasone) Confirm Administered Dose 20 mg .ROUTE .STK-MED ONE Stop: 03/02/19 09:45 Ephedrine Sulfate (Ephedrine Sulfate) Confirm Administered Dose 50 mg .ROUTE .STK-MED ONE Stop: 03/02/19 10:29 Fentanyl (Sublimaze) Confirm Administered Dose 250 mcg .ROUTE .STK-MED ONE Stop: 03/02/19 09:44 Fentanyl (Sublimaze) 50 mcg IVPUSH Q5M PRN PRN Reason: Pain (severe 7-10) Stop: 03/02/19 13:00 Bupivacaine HCl/Epinephrine Bitart (Sensorc Mpf 0.25%-Epi 1:923311) Confirm Administered Dose 30 mls @ as directed .ROUTE .STK-MED ONE Stop: 03/02/19 09:14 Lidocaine HCl (Xylocaine-Mpf 1%) Confirm Administered Dose 5 mls @ as directed .ROUTE .STK-MED ONE Stop: 03/02/19 09:45 Sodium Chloride (Normal Saline) Confirm Administered Dose 20 mls @ as directed .ROUTE .STK-MED ONE Stop: 03/02/19 10:29 Iopamidol (Isovue Multipack-370 (76%)) 50 ml IVPUSH ONETIME ONE Stop: 03/01/19 14:23 Last Admin: 03/01/19 14:22 Dose: 50 ml Midazolam HCl (Versed 1 Mg/Ml) Confirm Administered Dose 2 mg .ROUTE .STK-MED ONE Stop: 03/02/19 09:44 Ondansetron HCl (Zofran) Confirm Administered Dose 4 mg .ROUTE .STK-MED ONE Stop: 03/02/19 09:45 Phenylephrine HCl (Phenylephrine In Ns 100 Mcg/Ml) Confirm Administered Dose 1 mg .ROUTE .STK-MED ONE Stop: 03/02/19 10:29 Propofol (Diprivan 20 Ml) Confirm Administered Dose 200 mg .ROUTE .STK-MED ONE Stop: 03/02/19 09:44 - Exam General: Reports: Alert, Oriented, Cooperative HEENT: Reports: Pupils Equal, Pupils Reactive Lungs: Reports: Normal Respiratory Effort Cardiovascular: Reports: Regular Rate GI/Abdominal Exam: Soft, Non-Tender, No Distention, No Mass *Q Meaningful Use (DIS) - VTE *Q VTE Mechanical Contraindications *Q: DT, Suspected
--- NOTE | 2019-03-03 08:44 | PCM.SURGPN ---
- General Info Date of Service: 03/03/19 Date of Surgery/Procedure: 03/02/19 (and 02/23/19 original procedure date) POD#: 1 Post-Op Diagnosis: right breast hematoma Functional Status: Reports: Pain Controlled, Tolerating Diet, Ambulating. Denies: New Symptoms - Review of Systems General: Reports: No Symptoms HEENT: Reports: No Symptoms Pulmonary: Reports: No Symptoms. Denies: Shortness of Breath Cardiovascular: Reports: No Symptoms Musculoskeletal: Reports: Leg Pain (improving) Skin: Reports: No Symptoms Neurological: Reports: No Symptoms Psychiatric: Reports: No Symptoms - Patient Data Vitals - Most Recent: Last Vital Signs Temp 97.5 F 03/03/19 07:38 Pulse 62 03/03/19 07:38 Resp 16 03/03/19 08:09 BP 119/56 L 03/03/19 07:38 Pulse Ox 96 03/03/19 07:38 Weight - Most Recent: 122 lb 6 oz I&O - Last 24 Hours: Intake & Output 03/02/19 03/03/19 03/03/19 23:59 07:59 15:59 Intake Total 120 250 Output Total 1055 745 Balance -935 -495 Lab Results Last 24 Hrs: Laboratory Results - last 24 hr 03/02/19 03/02/19 03/02/19 Range/Units 09:00 09:00 09:00 WBC 6.31 (4.0-11.0) K/uL RBC 2.85 L (4.30-5.90) M/uL Hgb 8.7 L (12.0-16.0) g/dL Hct 28.0 L (36.0-46.0) % MCV 98.2 H (80.0-98.0) fL MCH 30.5 (27.0-32.0) pg MCHC 31.1 (31.0-37.0) g/dL RDW Std Deviation 52.9 (28.0-62.0) fl RDW Coeff of Paulette 16 H (11.0-15.0) % Plt Count 297 (150-400) K/uL MPV 10.90 (7.40-12.00) fL Nucleated RBC % 0.0 /100WBC Nucleated RBCs # 0 K/uL INR 0.96 APTT 28.0 (18.6-31.3) SEC Sodium 143 (136-145) mmol/L Potassium 3.6 (3.5-5.1) mmol/L Chloride 108 H (98-107) mmol/L Carbon Dioxide 26.9 (21.0-32.0) mmol/L BUN 16 (7.0-18.0) mg/dL Creatinine 0.9 (0.6-1.0) mg/dL Est Cr Clr Drug Dosing 49.51 mL/min Estimated GFR (MDRD) > 60.0 ml/min Glucose 89 (74-106) mg/dL Calcium 8.3 L (8.5-10.1) mg/dL Total Bilirubin 0.6 (0.2-1.0) mg/dL AST 41 H (15-37) IU/L ALT 46 (14-63) IU/L Alkaline Phosphatase 77 (46-116) U/L Total Protein 6.3 L (6.4-8.2) g/dL Albumin 2.7 L (3.4-5.0) g/dL Globulin 3.6 (2.6-4.0) g/dL Albumin/Globulin Ratio 0.8 L (0.9-1.6) Med Orders - Current: Current Medications Hydrocodone Bitart/Acetaminophen ([place] 325-5 Mg) 2 tab PO Q4H PRN PRN Reason: Pain (moderate 4-6) Last Admin: 03/02/19 18:17 Dose: 2 tab Cephalexin (Keflex) 500 mg PO Q6HR [facility] Last Admin: 03/03/19 06:32 Dose: 500 mg Ondansetron HCl (Zofran) 4 mg IVPUSH Q6H PRN PRN Reason: Nausea/Vomiting Sodium Chloride (Saline Flush) 10 ml FLUSH ASDIRECTED PRN PRN Reason: Keep Vein Open Sodium Chloride (Saline Flush) 2.5 ml FLUSH ASDIRECTED PRN PRN Reason: Keep Vein Open Sodium Chloride (Normal Saline) 10 ml IV ASDIRECTED PRN PRN Reason: IV Use Discontinued Medications Cefazolin Sodium (Ancef) Confirm Administered Dose 1 gm .ROUTE .STK-MED ONE Stop: 03/02/19 10:32 Dexamethasone (Dexamethasone) Confirm Administered Dose 20 mg .ROUTE .STK-MED ONE Stop: 03/02/19 09:45 Ephedrine Sulfate (Ephedrine Sulfate) Confirm Administered Dose 50 mg .ROUTE .STK-MED ONE Stop: 03/02/19 10:29 Fentanyl (Sublimaze) Confirm Administered Dose 250 mcg .ROUTE .STK-MED ONE Stop: 03/02/19 09:44 Fentanyl (Sublimaze) 50 mcg IVPUSH Q5M PRN PRN Reason: Pain (severe 7-10) Stop: 03/02/19 13:00 Bupivacaine HCl/Epinephrine Bitart (Sensorc Mpf 0.25%-Epi 1:514833) Confirm Administered Dose 30 mls @ as directed .ROUTE .STK-MED ONE Stop: 03/02/19 09:14 Lidocaine HCl (Xylocaine-Mpf 1%) Confirm Administered Dose 5 mls @ as directed .ROUTE .STK-MED ONE Stop: 03/02/19 09:45 Sodium Chloride (Normal Saline) Confirm Administered Dose 20 mls @ as directed .ROUTE .STK-MED ONE Stop: 03/02/19 10:29 Iopamidol (Isovue Multipack-370 (76%)) 50 ml IVPUSH ONETIME ONE Stop: 03/01/19 14:23 Last Admin: 03/01/19 14:22 Dose: 50 ml Midazolam HCl (Versed 1 Mg/Ml) Confirm Administered Dose 2 mg .ROUTE .STK-MED ONE Stop: 03/02/19 09:44 Ondansetron HCl (Zofran) Confirm Administered Dose 4 mg .ROUTE .STK-MED ONE Stop: 03/02/19 09:45 Phenylephrine HCl (Phenylephrine In Ns 100 Mcg/Ml) Confirm Administered Dose 1 mg .ROUTE .STK-MED ONE Stop: 03/02/19 10:29 Propofol (Diprivan 20 Ml) Confirm Administered Dose 200 mg .ROUTE .STK-MED ONE Stop: 03/02/19 09:44 - Exam Wound/Incisions: Healing Well, Dressing Dry and Intact, Drainage (in JEFERSON is old dark blood. No new bleeding and outputs low at 40 and 30cc's) General: Alert, Oriented HEENT: Pupils Equal, Pupils Reactive Lungs: Normal Respiratory Effort Extremities: Non-Tender. No: Pedal Edema, Mart's Sign, Leg Pain, Limited Range of Motion, Increased Warmth, Redness Skin: Warm, Dry Neurological: No New Focal Deficit Psy/Mental Status: Alert, Normal Affect, Normal Mood - Problem List & Annotations (1) Leg pain, posterior SNOMED Code(s): 66782773 Code(s): M79.606 - PAIN IN LEG, UNSPECIFIED Status: Resolved Priority: Low Current Visit: Yes Qualifiers: Laterality: left Qualified Code(s): M79.605 - Pain in left leg (2) Suspected DVT (deep vein thrombosis) SNOMED Code(s): 110560042 Code(s): R09.89 - OTH SYMPTOMS AND SIGNS INVOLVING THE CIRC AND RESP SYSTEMS Status: Ruled-out Priority: Low Current Visit: Yes (3) Admission for breast reconstruction following mastectomy SNOMED Code(s): 732885733, 573006610 Code(s): Z42.1 - ENCOUNTER FOR BREAST RECONSTRUCTION FOLLOWING MASTECTOMY Status: Acute Priority: Medium Current Visit: No (4) Hematoma (nontraumatic) of breast SNOMED Code(s): 359988126 Code(s): N64.89 - OTHER SPECIFIED DISORDERS OF BREAST Status: Resolved Priority: High Current Visit: Yes - Problem List Review Problem List Initiated/Reviewed/Updated: Yes - My Orders Last 24 Hours: Active Orders 24 hr Category Date Time Status Ready for Discharge [RC] PER UNIT ROUTINE Care 03/03/19 0830 Active Regular Diet [DIET] Diet 03/02/19 Dinner Active - Assessment Assessment (Free Text/Narrative):: much improved today. No signs of reaccumulation. old blood in Jeferson's and functioning well. Drains demonstrated to her. Discussed follow up Thursday and keflex continues until drains out. - Plan Plan (Free Text/Narrative):: home today. keflex until drains out follow up thursday at 11am drain cares instructed and demonstrated for patient shower daily norco script given and can fill only if needed
== END 2019-03-03 10:16 | disposition home or self-care (01) ==
LOC: MW.ED 11:42 → MW.MS 14:36 → MW.ED 14:45
PROVIDERS: ADMIT Plastic Surgery; ATTEND Surgery
DX: L76.32 Postprocedural hematoma of skin and subcutaneous tissue following other procedure (principal); D64.9 Anemia, unspecified; M79.605 Pain in left leg; C50.411 Malignant neoplasm of upper-outer quadrant of right female breast; Z90.11 Acquired absence of right breast and nipple; Z87.891 Personal history of nicotine dependence; Z79.899 Other long term (current) drug therapy
CPT/HCPCS: 10140; 36415; 71275; 80048; 80053; 85025; 85027; 85379; 85610; 85730; 93970; 99284; A9270; G0378; J0690; J1100; J2001; J2250; J2370; J2405; J2704; J3010; Q9967; 00400

== ENCOUNTER 2021-08-13 12:41 | Emergency (ER) | payer MEDICARE, MEDICAID ==
--- NOTE | 2021-08-13 13:54 | EDM.PDOC ---
ED HPI GENERAL MEDICAL PROBLEM - General Chief Complaint: Respiratory Problem Stated Complaint: SOB Time Seen by Provider: 08/13/21 13:53 Source of Information: Reports: Patient History Limitations: Reports: No Limitations - History of Present Illness INITIAL COMMENTS - FREE TEXT/NARRATIVE: HISTORY AND PHYSICAL: History of present illness: Patient is a 71-year-old female who presents to the emergency room with complaints of shortness of breath x1 week. She states she has nasal drainage, infrequent nonproductive cough, chills and body aches. Shortness of breath appears to be constant although is exacerbated with any physical activity. She was seen at the walk-in clinic yesterday and tested for COVID-19, this was negative. She was given a prescription for Zpak and Ventolin inhaler which she has started. She denies any pre-existing cardiac or pulmonary diseases. Patient denies any fever, headache, change in vision, syncope or near syncope. Denies any chest pain, back pain, abdominal pain, nausea, vomiting, diarrhea, constipation or dysuria. Has not noted any blood in urine or stool. Patient has been eating and drinking appropriately. No recent travel or sick contacts. Review of systems: As per history of present illness and below otherwise all systems reviewed and negative. Past medical history: As per history of present illness and as reviewed below otherwise noncontributory. Surgical history: As per history of present illness and as reviewed below otherwise noncontributory. Social history: See social history for further information Family history: As per history of present illness and as reviewed below otherwise noncontributory. Physical exam: General: Well developed and well nourished 71 year old female. Alert and orientated x 3. Nontoxic in appearance and in no acute distress. Vital signs are stable and have been reviewed by me. Nursing notes were reviewed. HEENT: Atraumatic, normocephalic, pupils equal and reactive bilaterally, negative for conjunctival pallor or scleral icterus, mucous membranes moist, TMs normal bilaterally, throat clear, neck supple, nontender, trachea midline. No drooling or trismus noted. No meningeal signs. No hot potato voice noted. Lungs: Slightly diminished to auscultation bilaterally. No wheezes, rales, or rhonchi. Chest nontender. Normal work of breathing, no accessory muscles used. Heart: S1S2, regular rate and rhythm without overt murmur, gallops, or rubs. No JVD. No peripheral edema Abdomen: Soft, nondistended, nontender. Normoactive bowel sounds. Negative for masses or costovertebral tenderness. Skin: Intact, warm, dry. No lesions or rashes noted. Hematologic: No petechiae or purpra. Mucosa appropriate color and normal nail bed color and refill. Extremities: Atraumatic, moves all extremities per self without difficulty or deficits, negative for cords or calf pain. Neurovascular unremarkable. Neuro: Awake, alert, oriented. Cranial nerves II through XII unremarkable. Cerebellum unremarkable. Motor and sensory unremarkable throughout. Exam nonfocal. Psychiatric: Mood and affect are appropriate. Normal thought process. Answering questions appropriately. Please note that the patient was seen and evaluated during the 2019 SARS-CoV-2 novel coronavirus pandemic period. Community viral transmission is ongoing at time of this encounter and the emergency department is operating under pandemic response procedures. Medical Decision Making: Patient is a 71 year old female who presents to the ED with complaints of SOB x 1 week. She states she was initially concerned she had COVID-19 and was tested yesterday at the walk-in clinic. She was given a prescription for azithromycin and a Ventolin inhaler. She continues to have shortness of breath and decided to come to the emergency room for chest x-ray. Patient's vital signs are stable. Lung sounds are slightly diminished. She states she usually does have lower extremity edema although none is noted on physical exam. Chest x-ray shows moderate cardiomegaly is present. Diffuse interstitial prominence is present with small bilateral pleural effusions. Findings likely due to interstitial pulmonary edema. CBC, CMP and troponin are unremarkable. Added BNP to labs. Patient's lab work shows a BNP of 2392, no comparable labs available. I did talk with patient about the need for admission due to new diagnosis of congest sosa heart failure. She is aware of necessity and education needs to be done during this time. She adamantly declines stating she will follow up with her primary care provider. I informed her of the risks of leaving without adequate treatment. 1530: Spoke to Dr Chet Barnes, patient's primary care provider. We discussed patient ER visit including presentation, lab work and chest x-ray. I informed him that the patient's declining admission and prefers to see him in the next few days. We agreed upon 40 mg of Lasix once daily and he will see the patient on Thursday at 10:30 AM. I have talked with the patient about today's findings, in addition to providing specific details for plan of care. Reassessment at the time of disposition demonstrates that the patient is in no acute distress. Counseling was provided and we discussed in great detail signs and symptoms that would prompt them to return to the Emergency Department. Medication, follow up and supportive care measures were reviewed and discussed. Voices understanding. Denies any further questions or concerns at this time. Diagnostics: CBC, CMP, BNP, CXR, EKG Therapeutics: Lasix Prescription: Lasix 40 mg daily (#30) Impression: New onset CHF Plan: 1. You were evaluated today on an emergent basis. Your lab work and chest x-ray in concerning for congestive heart failure (excess fluid). 2. Lasix 40mg once daily (preferably in the morning - it causes increased urine production). Limit your sodium in take. 3. Dr Chet Barnes wants to see you on 08/16/2021 for re-evaluation and further management of your new diagnosis. 4. If your symptoms should worsen, new symptoms develop or any of the signs and symptoms we discussed should arise please return to the emergency room or call 911 (if needed). Definitive disposition and diagnosis as appropriate pending reevaluation and review of above. - Related Data Allergies Allergy/AdvReac Type Severity Reaction Status Date / Time No Known Allergies Allergy Verified 08/13/21 13:43 Home Meds: Home Meds Furosemide [Lasix] 40 mg PO DAILY #30 tablet 08/13/21 [Rx] Past Medical History - Past Health History Medical/Surgical History: Denies Medical/Surgical History HEENT History: Reports: Cataract, Hard of Hearing, Other (See Below) Other HEENT History: uses reading glasses, has upper full denture and lo0wer removable partial denture Cardiovascular History: Reports: None Respiratory History: Reports: Other (See Below) Other Respiratory History: former smoker, has SOB with activity (ventolin inhaler prn), can wall 2 blocks without problems Gastrointestinal History: Reports: Other (See Below) Other Gastrointestinal History: occasional heartburn- takes TUMS Genitourinary History: Reports: None EDITOR NEWS History: Reports: Musculoskeletal History: Reports: Arthritis, Fracture Other Musculoskeletal History: hx of fx left foot and toe Neurological History: Reports: None Psychiatric History: Reports: None Other Psychiatric History: hx alcohol abuse Endocrine/Metabolic History: Reports: None Hematologic History: Reports: None Oncologic (Cancer) History: Reports: Breast, Uterine Dermatologic History: Reports: None - Infectious Disease History Infectious Disease History: Reports: Chicken Pox, Measles, Mumps - Past Surgical History Head Surgeries/Procedures: Reports: None HEENT Surgical History: Reports: Cataract Surgery, Tonsillectomy GI Surgical History: Reports: Colonoscopy Female Surgical History: Reports: Breast Biopsy, Breast Implant, Breast Reconstruction, Hysterectomy, Salpingo-Oophorectomy Other Female Surgeries/Procedures: R mastectomy Musculoskeletal Surgical History: Reports: ORIF Other Musculoskeletal Surgeries/Procedures:: ORIF left foot- denies hardware Oncologic Surgical History: Reports: Lumpectomy, Mastectomy, Other (See Below) Other Oncologic Surgeries/Procedures: Hysterectomy, BSO Social & Family History - Family History Family Medical History: No Pertinent Family History - Tobacco Use Second Hand Smoke Exposure: No - Caffeine Use Caffeine Use: Reports: None - Recreational Drug Use Recreational Drug Use: No ED ROS GENERAL - Review of Systems Review Of Systems: Comprehensive ROS is negative, except as noted in HPI. ED EXAM, GENERAL - Physical Exam Exam: See Below (See dictation) Course - Vital Signs Last Recorded V/S: Last Vital Signs Temp 96.8 F L 08/13/21 13:40 Pulse 99 08/13/21 16:00 Resp 20 08/13/21 13:40 BP 161/83 H 08/13/21 16:00 Pulse Ox 99 08/13/21 16:00 - Orders/Labs/Meds Orders: Active Orders 24 hr Category Date Time Status Furosemide [Lasix] Med 08/13/21 15:45 Ordered 40 mg PO DAILY Medication Orders Furosemide (Furosemide 40 Mg Tab) 40 mg PO DAILY LYNNETTE Last Admin: 08/13/21 15:52 Dose: 40 mg Documented by: Labs: Laboratory Tests 08/13/21 08/13/21 08/13/21 Range/Units 14:20 14:20 14:20 WBC 7.63 (4.0-11.0) K/uL RBC 4.62 (4.30-5.90) M/uL Hgb 14.1 (12.0-16.0) g/dL Hct 43.2 (36.0-46.0) % MCV 93.5 (80.0-98.0) fL MCH 30.5 (27.0-32.0) pg MCHC 32.6 (31.0-37.0) g/dL RDW Std Deviation 51.1 (28.0-62.0) fl RDW Coeff of Paulette 15 (11.0-15.0) % Plt Count 261 (150-400) K/uL MPV 12.80 H (7.40-12.00) fL Neut % (Auto) 58.3 (48.0-80.0) % Lymph % (Auto) 24.8 (16.0-40.0) % Dupage % (Auto) 10.5 (0.0-15.0) % Eos % (Auto) 5.5 (0.0-7.0) % Baso % (Auto) 0.9 (0.0-1.5) % Neut # (Auto) 4.5 (1.4-5.7) K/uL Lymph # (Auto) 1.9 (0.6-2.4) K/uL Dupage # (Auto) 0.8 (0.0-0.8) K/uL Eos # (Auto) 0.4 (0.0-0.7) K/uL Baso # (Auto) 0.1 (0.0-0.1) K/uL Nucleated RBC % 0.0 /100WBC Nucleated RBCs # 0 K/uL Sodium 144 (136-145) mmol/L Potassium 4.5 (3.5-5.1) mmol/L Chloride 108 H (98-107) mmol/L Carbon Dioxide 25.6 (21.0-32.0) mmol/L BUN 28 H (7.0-18.0) mg/dL Creatinine 1.0 (0.6-1.0) mg/dL Est Cr Clr Drug Dosing 43.27 mL/min Estimated GFR (MDRD) 54.3 ml/min Glucose 118 H (74-106) mg/dL Calcium 8.4 L (8.5-10.1) mg/dL Total Bilirubin 0.5 (0.2-1.0) mg/dL AST 63 H (15-37) IU/L ALT 80 H (14-63) IU/L Alkaline Phosphatase 125 H (46-116) U/L Troponin I < 0.050 (0.000-0.056) ng/mL B-Natriuretic Peptide 2392 H (<100) PG/ML Total Protein 7.7 (6.4-8.2) g/dL Albumin 3.3 L (3.4-5.0) g/dL Globulin 4.4 H (2.6-4.0) g/dL Albumin/Globulin Ratio 0.8 L (0.9-1.6) Meds: Medications Generic Name Dose Route Start Last Admin Trade Name Freq PRN Reason Stop Dose Admin Furosemide 40 mg 08/13/21 15:45 08/13/21 15:52 Furosemide 40 Mg Tab PO 40 mg DAILY LYNNETTE Administration Departure - Departure Time of Disposition: 15:35 Disposition: Home, Self-Care 01 Clinical Impression: New onset of congestive heart failure - Discharge Information Prescriptions: Furosemide [Lasix] 40 mg PO DAILY #30 tablet Instructions: Heart Failure, Self Care Referrals: Chet Barnes MD [Primary Care Provider] - Forms: ED Department Discharge Additional Instructions: The following information is given to patients seen in the emergency department who are being discharged to home. This information is to outline your options for follow-up care. We provide all patients seen in our emergency department with a follow-up referral. The need for follow-up, as well as the timing and circumstances, are variable depending upon the specifics of your emergency department visit. If you don't have a primary care physician on staff, we will provide you with a referral. We always advise you to contact your personal physician following an emergency department visit to inform them of the circumstance of the visit and for follow-up with them and/or the need for any referrals to a consulting specialist. The emergency department will also refer you to a specialist when appropriate. This referral assures that you have the opportunity for follow-up care with a specialist. All of these measure are taken in an effort to provide you with optimal care, which includes your follow-up. Under all circumstances we always encourage you to contact your private physician who remains a resource for coordinating your care. When calling for follow-up care, please make the office aware that this follow-up is from your recent emergency room visit. If for any reason you are refused follow-up, please contact the [facility] Emergency Department at and asked to speak to the emergency department charge nurse. [facility] [address] [place] [address] [facility] [address] [place] [address] Thank you for choosing the [facility] emergency department in [place] for your medical needs today. It was a pleasure caring for you. Today you were seen in the emergency department for shortness of breath Your prescription was electronically sent to: [facility] 1. You were evaluated today on an emergent basis. Your lab work and chest x-ray in concerning for congestive heart failure (excess fluid). 2. Lasix 40mg once daily (preferably in the morning - it causes increased urine production). Limit your sodium in take. 3. Dr Chet Barnes wants to see you on 08/16/2021 for re-evaluation and further management of your new diagnosis. 4. If your symptoms should worsen, new symptoms develop or any of the signs and symptoms we discussed should arise please return to the emergency room or call 911 (if needed). Sepsis Event Note (ED) - Evaluation Sepsis Screening Result: No Definite Risk - Focused Exam Vital Signs: Vital Signs Temp Pulse Resp BP Pulse Ox 08/13/21 16:00 99 161/83 H 99 08/13/21 13:40 96.8 F L 77 20 164/71 H 96 - My Orders Last 24 Hours: My Active Orders 08/13/21 15:45 Furosemide [Lasix] 40 mg PO DAILY - Assessment/Plan Last 24 Hours: My Active Orders 08/13/21 15:45 Furosemide [Lasix] 40 mg PO DAILY
--- NOTE | 2021-08-13 14:11 | CR ---
INDICATION: Chest pain, shortness of breath TECHNIQUE: Chest radiograph 1 view COMPARISON: None FINDINGS: Mediastinum: There is a convex density along the left paraspinal region at the level of the diaphragm which may represent a small hiatal hernia. Moderate cardiomegaly is present. Lung: Diffuse interstitial prominence is present with small bilateral pleural effusions. Mild bibasilar atelectasis is seen. No pneumothorax is identified. Bone and Soft tissue: See above. IMPRESSIONS: 1. Moderate cardiomegaly is present. 2. Diffuse interstitial prominence is present with small bilateral pleural effusions. Findings likely due to interstitial pulmonary edema. Dictated by Tom Yoon MD @ 08/13/2021 2:09:37 PM Dictated by: Tom Yoon MD @ 08/13/2021 14:09:43 (Electronically Signed)
[2021-08-13 15:00] LABS: BLOOD UREA NITROGEN,BUN 28 mg/dL (7.0-18.0); CARBON DIOXIDE,CO2 25.6 mmol/L (21.0-32.0); CHLORIDE,CL 108 mmol/L (98-107); GLUCOSE RANDOM 118 mg/dL (74-106); POTASSIUM,K 4.5 mmol/L (3.5-5.1); SODIUM,NA 144 mmol/L (136-145)
[2021-08-13] MEDS ORDERED: Furosemide 40 MG Tab PO SCH (15:45)
[2021-08-13 16:18] VITALS: BP 161/83; PULSE 99
--- NOTE | 2021-08-14 11:24 | PCM.EKG ---
#1 Interpretation EKG Date: 08/13/21 Time: 14:02 EKG Interpretation Comments: 86, nsr, pvc, rbbb
== END 2021-08-13 16:21 | disposition home or self-care (01) ==
LOC: MW.ED 12:41
DX: I50.9 Heart failure, unspecified (principal); Z87.891 Personal history of nicotine dependence; Z79.899 Other long term (current) drug therapy
CPT/HCPCS: 36415; 71045; 80053; 83880; 84484; 85025; 93005; 99285; A9270

== ENCOUNTER 2021-08-29 18:01 | Emergency (ER) | payer MEDICARE, MEDICAID ==
[2021-08-29 18:55] VITALS: BP 146/74; PULSE 92
--- NOTE | 2021-08-29 20:06 | EDM.PDOC ---
ED HPI GENERAL MEDICAL PROBLEM - General Chief Complaint: Abdominal Pain Stated Complaint: STOMACHE ISSUES Time Seen by Provider: 08/29/21 18:49 - History of Present Illness INITIAL COMMENTS - FREE TEXT/NARRATIVE: Attempted to evaluate patient. Patient no where to be found. Contacted patients significant other. Please refer to call log. Encouraged to return or follow up with pcp given normal vitals head Pain Score (Numeric/FACES): 4 - Related Data Allergies Allergy/AdvReac Type Severity Reaction Status Date / Time No Known Allergies Allergy Verified 08/29/21 18:38 Home Meds: Home Meds Furosemide [Lasix] 40 mg PO DAILY #30 tablet 08/13/21 [Rx] Past Medical History - Past Health History Medical/Surgical History: Denies Medical/Surgical History HEENT History: Reports: Cataract, Hard of Hearing, Other (See Below) Other HEENT History: uses reading glasses, has upper full denture and lo0wer removable partial denture Cardiovascular History: Reports: None Respiratory History: Reports: Other (See Below) Other Respiratory History: former smoker, has SOB with activity (ventolin inhaler prn), can wall 2 blocks without problems Gastrointestinal History: Reports: Other (See Below) Other Gastrointestinal History: occasional heartburn- takes TUMS Genitourinary History: Reports: None 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: Musculoskeletal History: Reports: Arthritis, Fracture Other Musculoskeletal History: hx of fx left foot and toe Neurological History: Reports: None Psychiatric History: Reports: None Other Psychiatric History: hx alcohol abuse Endocrine/Metabolic History: Reports: None Hematologic History: Reports: None Oncologic (Cancer) History: Reports: Breast, Uterine Dermatologic History: Reports: None - Infectious Disease History Infectious Disease History: Reports: Chicken Pox, Measles, Mumps - Past Surgical History Head Surgeries/Procedures: Reports: None HEENT Surgical History: Reports: Cataract Surgery, Tonsillectomy GI Surgical History: Reports: Colonoscopy Female Surgical History: Reports: Breast Biopsy, Breast Implant, Breast Reconstruction, Hysterectomy, Salpingo-Oophorectomy Other Female Surgeries/Procedures: R mastectomy Musculoskeletal Surgical History: Reports: ORIF Other Musculoskeletal Surgeries/Procedures:: ORIF left foot- denies hardware Oncologic Surgical History: Reports: Lumpectomy, Mastectomy, Other (See Below) Other Oncologic Surgeries/Procedures: Hysterectomy, BSO Social & Family History - Family History Family Medical History: No Pertinent Family History - Tobacco Use Tobacco Use Status *Q: Former Tobacco User Used Tobacco, but Quit: Yes Month/Year Tobacco Last Used: 15 years ago Second Hand Smoke Exposure: No - Caffeine Use Caffeine Use: Reports: Coffee - Recreational Drug Use Recreational Drug Use: No ED ROS GENERAL - Review of Systems Review Of Systems: See Below ED EXAM, GENERAL - Physical Exam Exam: See Below Course - Vital Signs Last Recorded V/S: Last Vital Signs Temp 36.4 C 08/29/21 18:39 Pulse 92 08/29/21 18:53 Resp 15 08/29/21 18:53 BP 146/74 H 08/29/21 18:53 Pulse Ox 99 08/29/21 18:53 Departure - Departure Time of Disposition: 20:04 Disposition: Eloped 07 Clinical Impression: COVID-19 - Discharge Information Referrals: Chet Barnes MD [Primary Care Provider] - Sepsis Event Note (ED) - Evaluation Sepsis Screening Result: No Definite Risk - Focused Exam Vital Signs: Vital Signs Temp Pulse Resp BP Pulse Ox 08/29/21 18:53 92 15 146/74 H 99 08/29/21 18:39 36.4 C 98 18 145/69 H 100
== END 2021-08-29 20:04 | disposition left against medical advice (07) ==
LOC: MW.ED 18:01
DX: U07.1 COVID-19 (principal); Z53.21 Procedure and treatment not carried out due to patient leaving prior to being seen by health care provider

== ENCOUNTER 2021-09-04 08:21 | Emergency (ER) | payer MEDICARE, MEDICAID ==
--- NOTE | 2021-09-04 08:45 | EDM.PDOC ---
ED HPI GENERAL MEDICAL PROBLEM - General Chief Complaint: Respiratory Problem Stated Complaint: SOB, HEART ISSUES, DR MAY REFERRED OVER Time Seen by Provider: 09/04/21 08:28 Source of Information: Reports: Patient History Limitations: Reports: No Limitations - History of Present Illness INITIAL COMMENTS - FREE TEXT/NARRATIVE: Patient is a 71-year-old female who was sent in by her PMD for increasing lower extremity swelling. There are some concern patient may have a new onset CHF as she gained about 10 pounds and had increasing lower extremity edema. She also complains of shortness of breath especially with laying flat. Denies any productive cough fever chills chest pain nausea vomiting but states that she feels short of breath whenever she exerts herself. She denies any recent travels states both her legs are swollen. She did have good urinary output. - Related Data Allergies Allergy/AdvReac Type Severity Reaction Status Date / Time No Known Allergies Allergy Verified 09/04/21 08:32 Home Meds: Home Meds Furosemide [Lasix] 40 mg PO DAILY #30 tablet 08/13/21 [Rx] predniSONE [Prednisone] 40 mg PO DAILY 09/04/21 [History] Past Medical History - Past Health History Medical/Surgical History: Denies Medical/Surgical History HEENT History: Reports: Cataract, Hard of Hearing, Other (See Below) Other HEENT History: uses reading glasses, has upper full denture and lo0wer removable partial denture Cardiovascular History: Reports: None Respiratory History: Reports: Other (See Below) Other Respiratory History: former smoker, has SOB with activity (ventolin inhaler prn), can wall 2 blocks without problems Gastrointestinal History: Reports: Other (See Below) Other Gastrointestinal History: occasional heartburn- takes TUMS Genitourinary History: Reports: None [employer] History: Reports: Musculoskeletal History: Reports: Arthritis, Fracture Other Musculoskeletal History: hx of fx left foot and toe Neurological History: Reports: None Psychiatric History: Reports: None Other Psychiatric History: hx alcohol abuse Endocrine/Metabolic History: Reports: None Hematologic History: Reports: None Oncologic (Cancer) History: Reports: Breast, Uterine Dermatologic History: Reports: None - Infectious Disease History Infectious Disease History: Reports: Chicken Pox, Measles, Mumps - Past Surgical History Head Surgeries/Procedures: Reports: None HEENT Surgical History: Reports: Cataract Surgery, Tonsillectomy GI Surgical History: Reports: Colonoscopy Female Surgical History: Reports: Breast Biopsy, Breast Implant, Breast Reconstruction, Hysterectomy, Salpingo-Oophorectomy Other Female Surgeries/Procedures: R mastectomy Musculoskeletal Surgical History: Reports: ORIF Other Musculoskeletal Surgeries/Procedures:: ORIF left foot- denies hardware Oncologic Surgical History: Reports: Lumpectomy, Mastectomy, Other (See Below) Other Oncologic Surgeries/Procedures: Hysterectomy, BSO Social & Family History - Family History Family Medical History: No Pertinent Family History - Caffeine Use Caffeine Use: Reports: Coffee ED ROS GENERAL - Review of Systems Review Of Systems: See Below Constitutional: Reports: No Symptoms HEENT: Reports: No Symptoms Respiratory: Reports: Shortness of Breath, Cough Cardiovascular: Reports: No Symptoms Endocrine: Reports: No Symptoms GI/Abdominal: Reports: No Symptoms : Reports: No Symptoms Musculoskeletal: Reports: No Symptoms Skin: Reports: No Symptoms Neurological: Reports: No Symptoms Psychiatric: Reports: No Symptoms Hematologic/Lymphatic: Reports: No Symptoms Immunologic: Reports: No Symptoms ED EXAM, GENERAL - Physical Exam Exam: See Below Exam Limited By: No Limitations General Appearance: Alert, WD/WN, No Apparent Distress Nose: Normal Inspection Head: Atraumatic Neck: Normal Inspection, Supple, Non-Tender Respiratory/Chest: No Respiratory Distress, Decreased Breath Sounds Cardiovascular: Normal Peripheral Pulses, Regular Rate, Rhythm GI/Abdominal: Normal Bowel Sounds, Soft, Non-Tender Back Exam: Normal Inspection Extremities: Pedal Edema Neurological: Alert, Oriented #1 Interpretation EKG Date: 09/04/21 Time: 08:43 Rhythm: NSR Rate (Beats/Min): 91 ST-T: Normal #2 Interpretation EKG Date: 09/04/21 Time: 14:25 Rhythm: Other (sinus tachy) Rate (Beats/Min): 113 ST-T: Normal Course - Vital Signs Last Recorded V/S: Last Vital Signs Temp 97.8 F 09/04/21 11:56 Pulse 86 09/04/21 18:00 Resp 20 09/04/21 18:00 BP 144/80 H 09/04/21 18:00 Pulse Ox 100 09/04/21 18:00 - Orders/Labs/Meds Orders: Active Orders 24 hr Category Date Time Status RT BiPAP/CPAP [RC] ASDIRECTED Care 09/04/21 14:20 Active CULTURE BLOOD [BC] Stat Lab 09/04/21 10:37 Received CULTURE BLOOD [BC] Stat Lab 09/04/21 10:44 Received PROCALCITONIN [REF] Stat Lab 09/04/21 08:36 Received VANCOMYCIN TROUGH [CHEM] Stat Lab 09/07/21 15:00 Ordered Azithromycin [Zithromax] 500 mg Med 09/04/21 10:00 Active Sodium Chloride 0.9% [Normal Saline AdvBag] 250 ml IV ONETIME Pharmacy to Dose - Vancomycin Med 09/04/21 15:15 Active 1 dose .XX ASDIRECTED Piperacillin/Tazobactam [Piperacil-Tazobact] 3.375 gm Med 09/04/21 15:15 Active Sodium Chloride 0.9% [Normal Saline AdvBag] 50 ml IV Q6H Sodium Chloride 0.9% [Normal Saline] 500 ml Med 09/04/21 17:45 Active IV .BOLUS Vancomycin 1 gm Med 09/04/21 15:30 Active Sodium Chloride 0.9% [Normal Saline AdvBag] 250 ml IV Q24H Blood Culture x2 Reflex Set [OM.PC] Stat Oth 09/04/21 09:59 Ordered Medication Orders Azithromycin 500 mg/ Sodium (Chloride) 250 mls @ 250 mls/hr IV ONETIME [facility] Last Admin: 09/04/21 12:06 Dose: 250 mls/hr Documented by: WEN Piperacillin Sod/Tazobactam (Sod 3.375 gm/ Sodium Chloride) 50 mls @ 100 mls/hr IV Q6H [facility] Last Admin: 09/04/21 15:56 Dose: 100 mls/hr Documented by: JASPREET Vancomycin HCl 1 gm/ Sodium (Chloride) 250 mls @ 166.667 mls/hr IV Q24H [facility] Last Admin: 09/04/21 16:25 Dose: 166.667 mls/hr Documented by: JASPREET Sodium Chloride (Normal Saline) 500 mls @ 200 mls/hr IV .BOLUS [facility] Vancomycin HCl (Pharmacy To Dose - Vancomycin) 1 dose .XX ASDIRECTED [facility] Labs: Laboratory Tests 09/04/21 09/04/21 09/04/21 Range/Units 08:36 08:36 08:36 WBC 20.92 H (4.0-11.0) K/uL RBC 4.90 (4.30-5.90) M/uL Hgb 14.6 (12.0-16.0) g/dL Hct 45.4 (36.0-46.0) % MCV 92.7 (80.0-98.0) fL MCH 29.8 (27.0-32.0) pg MCHC 32.2 (31.0-37.0) g/dL RDW Std Deviation 50.0 (28.0-62.0) fl RDW Coeff of Paulette 15 (11.0-15.0) % Plt Count 377 (150-400) K/uL MPV 12.70 H (7.40-12.00) fL Neut % (Auto) 86.3 H (48.0-80.0) % Lymph % (Auto) 8.5 L (16.0-40.0) % Saunders % (Auto) 5.2 (0.0-15.0) % Eos % (Auto) 0.0 (0.0-7.0) % Baso % (Auto) 0.0 (0.0-1.5) % Neut # (Auto) 18.1 H (1.4-5.7) K/uL Lymph # (Auto) 1.8 (0.6-2.4) K/uL Saunders # (Auto) 1.1 H (0.0-0.8) K/uL Eos # (Auto) 0.0 (0.0-0.7) K/uL Baso # (Auto) 0.0 (0.0-0.1) K/uL Nucleated RBC % 0.0 /100WBC Nucleated RBCs # 0 K/uL INR APTT (18.6-31.3) SEC ABG pH (7.35-7.45) ABG pCO2 (35-45) mmHG ABG pO2 (80-105) mmHG ABG HCO3 (22-26) mEq/L ABG Base Excess (-2.0-3.0) Sodium 140 (136-145) mmol/L Potassium 4.1 (3.5-5.1) mmol/L Chloride 104 (98-107) mmol/L Carbon Dioxide 23.9 (21.0-32.0) mmol/L BUN 44 H (7.0-18.0) mg/dL Creatinine 1.6 H (0.6-1.0) mg/dL Est Cr Clr Drug Dosing 27.04 mL/min Estimated GFR (MDRD) 31.6 ml/min Glucose 121 H (74-106) mg/dL Lactic Acid (0.4-2.0) mmol/L Calcium 9.1 (8.5-10.1) mg/dL Magnesium 2.2 (1.8-2.4) mg/dL Total Bilirubin 0.6 (0.2-1.0) mg/dL AST 42 H (15-37) IU/L ALT 59 (14-63) IU/L Alkaline Phosphatase 130 H (46-116) U/L Troponin I < 0.050 (0.000-0.056) ng/mL B-Natriuretic Peptide 3792 H (<100) PG/ML Total Protein 8.6 H (6.4-8.2) g/dL Albumin 3.7 (3.4-5.0) g/dL Globulin 4.9 H (2.6-4.0) g/dL Albumin/Globulin Ratio 0.8 L (0.9-1.6) Lipase 135 (73-393) U/L SARS-CoV-2 RNA (MICKI) (NEGATIVE) 09/04/21 09/04/21 09/04/21 Range/Units 08:36 10:05 10:37 WBC (4.0-11.0) K/uL RBC (4.30-5.90) M/uL Hgb (12.0-16.0) g/dL Hct (36.0-46.0) % MCV (80.0-98.0) fL MCH (27.0-32.0) pg MCHC (31.0-37.0) g/dL RDW Std Deviation (28.0-62.0) fl RDW Coeff of Paulette (11.0-15.0) % Plt Count (150-400) K/uL MPV (7.40-12.00) fL Neut % (Auto) (48.0-80.0) % Lymph % (Auto) (16.0-40.0) % Saunders % (Auto) (0.0-15.0) % Eos % (Auto) (0.0-7.0) % Baso % (Auto) (0.0-1.5) % Neut # (Auto) (1.4-5.7) K/uL Lymph # (Auto) (0.6-2.4) K/uL Saunders # (Auto) (0.0-0.8) K/uL Eos # (Auto) (0.0-0.7) K/uL Baso # (Auto) (0.0-0.1) K/uL Nucleated RBC % /100WBC Nucleated RBCs # K/uL INR 1.24 APTT 27.6 (18.6-31.3) SEC ABG pH (7.35-7.45) ABG pCO2 (35-45) mmHG ABG pO2 (80-105) mmHG ABG HCO3 (22-26) mEq/L ABG Base Excess (-2.0-3.0) Sodium (136-145) mmol/L Potassium (3.5-5.1) mmol/L Chloride (98-107) mmol/L Carbon Dioxide (21.0-32.0) mmol/L BUN (7.0-18.0) mg/dL Creatinine (0.6-1.0) mg/dL Est Cr Clr Drug Dosing mL/min Estimated GFR (MDRD) ml/min Glucose (74-106) mg/dL Lactic Acid 2.9 H* (0.4-2.0) mmol/L Calcium (8.5-10.1) mg/dL Magnesium (1.8-2.4) mg/dL Total Bilirubin (0.2-1.0) mg/dL AST (15-37) IU/L ALT (14-63) IU/L Alkaline Phosphatase (46-116) U/L Troponin I (0.000-0.056) ng/mL B-Natriuretic Peptide (<100) PG/ML Total Protein (6.4-8.2) g/dL Albumin (3.4-5.0) g/dL Globulin (2.6-4.0) g/dL Albumin/Globulin Ratio (0.9-1.6) Lipase (73-393) U/L SARS-CoV-2 RNA (MICKI) NEGATIVE (NEGATIVE) 09/04/21 09/04/21 09/04/21 Range/Units 14:32 14:32 14:32 WBC 22.40 H (4.0-11.0) K/uL RBC 4.73 (4.30-5.90) M/uL Hgb 14.4 (12.0-16.0) g/dL Hct 45.3 (36.0-46.0) % MCV 95.8 (80.0-98.0) fL MCH 30.4 (27.0-32.0) pg MCHC 31.8 (31.0-37.0) g/dL RDW Std Deviation 52.1 (28.0-62.0) fl RDW Coeff of Paulette 15 (11.0-15.0) % Plt Count 365 (150-400) K/uL MPV 13.20 H (7.40-12.00) fL Neut % (Auto) 80.4 H (48.0-80.0) % Lymph % (Auto) 14.8 L (16.0-40.0) % Saunders % (Auto) 4.8 (0.0-15.0) % Eos % (Auto) 0.0 (0.0-7.0) % Baso % (Auto) 0.0 (0.0-1.5) % Neut # (Auto) 18.0 H (1.4-5.7) K/uL Lymph # (Auto) 3.3 H (0.6-2.4) K/uL Saunders # (Auto) 1.1 H (0.0-0.8) K/uL Eos # (Auto) 0.0 (0.0-0.7) K/uL Baso # (Auto) 0.0 (0.0-0.1) K/uL Nucleated RBC % 0.0 /100WBC Nucleated RBCs # 0 K/uL INR APTT (18.6-31.3) SEC ABG pH (7.35-7.45) ABG pCO2 (35-45) mmHG ABG pO2 (80-105) mmHG ABG HCO3 (22-26) mEq/L ABG Base Excess (-2.0-3.0) Sodium 142 (136-145) mmol/L Potassium 4.2 (3.5-5.1) mmol/L Chloride 104 (98-107) mmol/L Carbon Dioxide 17.1 L (21.0-32.0) mmol/L BUN 48 H (7.0-18.0) mg/dL Creatinine 1.9 H (0.6-1.0) mg/dL Est Cr Clr Drug Dosing 22.77 mL/min Estimated GFR (MDRD) 25.9 ml/min Glucose 244 H (74-106) mg/dL Lactic Acid (0.4-2.0) mmol/L Calcium 8.6 (8.5-10.1) mg/dL Magnesium (1.8-2.4) mg/dL Total Bilirubin (0.2-1.0) mg/dL AST (15-37) IU/L ALT (14-63) IU/L Alkaline Phosphatase (46-116) U/L Troponin I < 0.050 (0.000-0.056) ng/mL B-Natriuretic Peptide (<100) PG/ML Total Protein (6.4-8.2) g/dL Albumin (3.4-5.0) g/dL Globulin (2.6-4.0) g/dL Albumin/Globulin Ratio (0.9-1.6) Lipase (73-393) U/L SARS-CoV-2 RNA (MICKI) (NEGATIVE) 09/04/21 09/04/21 Range/Units 14:46 16:33 WBC (4.0-11.0) K/uL RBC (4.30-5.90) M/uL Hgb (12.0-16.0) g/dL Hct (36.0-46.0) % MCV (80.0-98.0) fL MCH (27.0-32.0) pg MCHC (31.0-37.0) g/dL RDW Std Deviation (28.0-62.0) fl RDW Coeff of Paulette (11.0-15.0) % Plt Count (150-400) K/uL MPV (7.40-12.00) fL Neut % (Auto) (48.0-80.0) % Lymph % (Auto) (16.0-40.0) % Saunders % (Auto) (0.0-15.0) % Eos % (Auto) (0.0-7.0) % Baso % (Auto) (0.0-1.5) % Neut # (Auto) (1.4-5.7) K/uL Lymph # (Auto) (0.6-2.4) K/uL Saunders # (Auto) (0.0-0.8) K/uL Eos # (Auto) (0.0-0.7) K/uL Baso # (Auto) (0.0-0.1) K/uL Nucleated RBC % /100WBC Nucleated RBCs # K/uL INR APTT (18.6-31.3) SEC ABG pH 7.16 L* (7.35-7.45) ABG pCO2 22 L (35-45) mmHG ABG pO2 359 H (80-105) mmHG ABG HCO3 8 L (22-26) mEq/L ABG Base Excess -19.0 L (-2.0-3.0) Sodium (136-145) mmol/L Potassium (3.5-5.1) mmol/L Chloride (98-107) mmol/L Carbon Dioxide (21.0-32.0) mmol/L BUN (7.0-18.0) mg/dL Creatinine (0.6-1.0) mg/dL Est Cr Clr Drug Dosing mL/min Estimated GFR (MDRD) ml/min Glucose (74-106) mg/dL Lactic Acid 7.6 H* (0.4-2.0) mmol/L Calcium (8.5-10.1) mg/dL Magnesium (1.8-2.4) mg/dL Total Bilirubin (0.2-1.0) mg/dL AST (15-37) IU/L ALT (14-63) IU/L Alkaline Phosphatase (46-116) U/L Troponin I (0.000-0.056) ng/mL B-Natriuretic Peptide (<100) PG/ML Total Protein (6.4-8.2) g/dL Albumin (3.4-5.0) g/dL Globulin (2.6-4.0) g/dL Albumin/Globulin Ratio (0.9-1.6) Lipase (73-393) U/L SARS-CoV-2 RNA (MICKI) (NEGATIVE) Meds: Medications Generic Name Dose Route Start Last Admin Trade Name Freq PRN Reason Stop Dose Admin Azithromycin 500 mg/ Sodium 250 mls @ 250 mls/hr 09/04/21 10:00 09/04/21 12:06 Chloride IV 250 mls/hr ONETIME LYNNETTE Administration Piperacillin Sod/Tazobactam 50 mls @ 100 mls/hr 09/04/21 15:15 09/04/21 15:56 Sod 3.375 gm/ Sodium Chloride IV 100 mls/hr Q6H LYNNETTE Administration Vancomycin HCl 1 gm/ Sodium 250 mls @ 166.667 mls/hr 09/04/21 15:30 09/04/21 16:25 Chloride IV 166.667 mls/hr Q24H LYNNETTE Administration Sodium Chloride 500 mls @ 200 mls/hr 09/04/21 17:45 Normal Saline IV .BOLUS LYNNETTE Vancomycin HCl 1 dose 09/04/21 15:15 Pharmacy To Dose - Vancomycin .XX ASDIRECTED LYNNETTE Discontinued Medications Generic Name Dose Route Start Last Admin Trade Name Freq PRN Reason Stop Dose Admin Furosemide 40 mg 09/04/21 14:53 Furosemide 40 Mg/4 Ml Vial IVPUSH 09/04/21 14:54 NOW ONE Ceftriaxone Sodium/Dextrose 1 50 mls @ 100 mls/hr 09/04/21 09:59 09/04/21 11:12 gm/ Premix IV 09/04/21 10:28 100 mls/hr ONETIME ONE Administration Morphine Sulfate 2 mg 09/04/21 14:11 Morphine 2 Mg/Ml Syringe IVPUSH 09/04/21 14:12 ONETIME ONE - Re-Assessments/Exams Free Text/Narrative Re-Assessment/Exam: 09/04/21 14:18 Patient given antibiotics for possible pneumonia. Patient has CHF so we will not give the 20 cc/kg boluses may exacerbate her CHF. Patient will be admitted to the hospital for further care of this pneumonia. 09/04/21 18:26 Pt's course took a turn. Pt complained of abd pain and SOB. She was started on BiPAP. Pt' CT abd/pel showed renny. We did an ultrasound and confirm renny Pt LFT are normal. Pt lactate is rising as well. We gave a small bolus of fluid. We spoke with our surgeon who recommended transferring pt. Pt is accepted to [facility] in [place]. Departure - Departure Time of Disposition: 18:28 Disposition: DC/Tfer to Acute Hospital 02 Condition: Critical Clinical Impression: Sepsis, CHF (congestive heart failure), Pneumonia, Cholecystitis - Discharge Information *PRESCRIPTION DRUG MONITORING PROGRAM REVIEWED*: Not Applicable *COPY OF PRESCRIPTION DRUG MONITORING REPORT IN PATIENT CASIMIRO: Not Applicable Referrals: Emir May MD [Primary Care Provider] - Forms: ED Department Discharge Critical Care Note - Critical Care Note Total Time (mins): 45 Comments: Critical Care Procedure Note Authorized and Performed by: MD Name Total critical care time: Approximately 45 minutes Due to a high probability of clinically significant, life threatening deterioration, the patient required my highest level of preparedness to intervene emergently and I personally spent this critical care time directly and personally managing the patient. This critical care time included obtaining a history; examining the patient; pulse oximetry; ordering and review of studies; arranging urgent treatment with development of a management plan; evaluation of patient's response to treatment; frequent reassessment; and, discussions with ot her providers. This critical care time was performed to assess and manage the high probability of imminent, life-threatening deterioration that could result in multi-organ failure. It was exclusive of separately billable procedures and treating other patients and teaching time. Please see MDM section and the rest of the note for further information on patient assessment and treatment. Sepsis Event Note (ED) - Evaluation Sepsis Screening Result: No Definite Risk - Focused Exam Vital Signs: Vital Signs Temp Pulse Resp BP Pulse Ox 09/04/21 18:00 86 20 144/80 H 100 09/04/21 17:00 79 22 H 145/86 H 97 09/04/21 16:00 82 22 H 132/82 96 09/04/21 15:13 93 139/95 H 100 09/04/21 15:00 94 20 145/100 H 100 09/04/21 14:00 104 H 22 H 132/74 100 09/04/21 13:00 102 H 22 H 166/115 H 96 09/04/21 11:56 97.8 F 94 18 163/97 H 98 09/04/21 11:04 94 165/96 H 91 L 09/04/21 10:30 99 156/94 H 88 L 09/04/21 08:32 98.5 F 87 18 148/107 H 98 - My Orders Last 24 Hours: My Active Orders 09/04/21 08:36 PROCALCITONIN [REF] Stat 09/04/21 09:59 Blood Culture x2 Reflex Set [OM.PC] Stat 09/04/21 10:00 Azithromycin [Zithromax] 500 mg Sodium Chloride 0.9% [Normal Saline AdvBag] 250 ml IV ONETIME 09/04/21 10:37 CULTURE BLOOD [BC] Stat 09/04/21 10:44 CULTURE BLOOD [BC] Stat 09/04/21 14:20 RT BiPAP/CPAP [RC] ASDIRECTED 09/04/21 17:45 Sodium Chloride 0.9% [Normal Saline] 500 ml IV .BOLUS - Assessment/Plan Last 24 Hours: My Active Orders 09/04/21 08:36 PROCALCITONIN [REF] Stat 09/04/21 09:59 Blood Culture x2 Reflex Set [OM.PC] Stat 09/04/21 10:00 Azithromycin [Zithromax] 500 mg Sodium Chloride 0.9% [Normal Saline AdvBag] 250 ml IV ONETIME 09/04/21 10:37 CULTURE BLOOD [BC] Stat 09/04/21 10:44 CULTURE BLOOD [BC] Stat 09/04/21 14:20 RT BiPAP/CPAP [RC] ASDIRECTED 09/04/21 17:45 Sodium Chloride 0.9% [Normal Saline] 500 ml IV .BOLUS Plan: Patient is a 71-year-old female who presents today for increasing shortness of breath and lower extremity edema. Patient could have possible new onset CHF will obtain EKG labs x-ray and reassess patient.
[2021-09-04 09:13] LABS: BLOOD UREA NITROGEN,BUN 44 mg/dL (7.0-18.0); CARBON DIOXIDE,CO2 23.9 mmol/L (21.0-32.0); CHLORIDE,CL 104 mmol/L (98-107); GLUCOSE RANDOM 121 mg/dL (74-106); LIPASE 135 U/L (73-393); POTASSIUM,K 4.1 mmol/L (3.5-5.1); SODIUM,NA 140 mmol/L (136-145)
--- NOTE | 2021-09-04 09:34 | CR ---
Indication: Shortness of breath, possible CHF Comparison: Single view chest August 13, 2021 Technique: Single AP view chest Findings: There is hyperinflation and chronic interstitial change. There are persistent basilar effusions with adjacent compressive atelectasis versus infiltrates with moderate pulmonary edema. There is no pneumothorax. The cardiac silhouette is mildly prominent. The bony thorax is grossly intact. Impression: Hyperinflation and chronic interstitial change with persistent basilar effusion with adjacent compressive atelectasis versus infiltrates. Dictated by Jem Sotelo MD @ 09/04/2021 9:33:20 AM (Electronically Signed)
[2021-09-04] MEDS ORDERED: cefTRIAXone 1 GM in Premix Bag 1 BAG IV ONE (09:59)
[2021-09-04] MEDS ORDERED: Azithromycin 500 MG in Sodium Chloride 0.9% 250 ML IV SCH (10:00)
--- NOTE | 2021-09-04 11:20 | CT ---
Indication: Worsening shortness of breath Technique: Volumetric multidetector CT images of the chest were obtained without the administration of IV contrast. Comparison: Single view chest August 13, 2021 Findings: The thoracic inlet and thyroid gland are unremarkable. The thoracic aorta demonstrates scattered atherosclerotic calcification. There are extensive markedly enlarged mediastinal and hilar lymph nodes with demonstration of a large right axillary lymph node measuring 2.1 centimeters in greatest dimension. There is a right-sided subpectoral breast implant in satisfactory position with demonstration of a mass within the superior lateral aspect of the pectus muscle seen on series 201, image 30 measuring 1.9 centimeters in greatest dimension. The trachea and bronchi are well aerated with mild central bronchial thickening. There is right greater than left basilar pleural effusion with adjacent compressive atelectasis and marked interlobular septal thickening commensurate with pulmonary edema. There is consolidative opacity within the peripheral lingula. Calcified granuloma in the peripheral right lower lobe is seen. The partially visualized upper abdomen is grossly unremarkable. The thoracic vertebral body heights are grossly maintained with minimal endplate Schmorl`s defects. There is no obvious lytic or blastic lesion identified. Impression: Demonstration of a mass within the superior right pectoral muscle seen on series 201, image 30 measuring 1.9 centimeters with markedly pathologic appearing mediastinal and hilar lymph nodes as well as a large axillary lymph node measuring 2.1 centimeters. Correlate with history of breast cancer. Prior right breast implant. Right greater than left basilar pleural effusions with adjacent compressive atelectasis versus infiltrates with increasing interstitial markings likely representing developing pulmonary edema and/or infiltrates within the peripheral lingula and central right upper lobe. Overall correlate with history of malignancy. Consider follow-up with diagnostic right breast workup including diagnostic mammogram and ultrasound. Please note that all CT scans at this facility use dose modulation, iterative reconstruction, and/or weight-based dosing when appropriate to reduce radiation dose to as low as reasonably achievable. Dictated by Jem Sotelo MD @ 09/04/2021 11:18:21 AM (Electronically Signed)
[2021-09-04] MEDS ORDERED: Morphine 2 MG/ML SYRINGE IVPUSH ONE (14:11)
[2021-09-04] MEDS ORDERED: Furosemide 40 MG/4 ML VIAL IVPUSH ONE (14:53)
[2021-09-04 15:15] LABS: CARBON DIOXIDE,CO2 17.1 mmol/L (21.0-32.0); POTASSIUM,K 4.2 mmol/L (3.5-5.1)
[2021-09-04] MEDS ORDERED: Piperacillin/Tazobactam 3.375 GM in Sodium Chloride 0.9% 50 ML IV SCH (15:15)
--- NOTE | 2021-09-04 16:22 | CT ---
INDICATION: Sepsis. COMPARISON: None of this area TECHNIQUE: CT examination of the abdomen and pelvis was performed without intravenous contrast. Thin section axial images were obtained from the lung bases through the pubic symphysis. Oral contrast was not administered. TECHNICAL NOTE: The study is substantially limited due to patient positioning, motion artifact, possibly fat planes and lack of contrast Please note that all CT scans at this facility use dose modulation, iterative reconstruction, and/or weight-based dosing when appropriate to reduce radiation dose to as low as reasonably achievable. FINDINGS: LUNG BASES: The heart is substantially enlarged at the lung bases. Bibasilar airspace process probably largely represents atelectasis. Moderate-sized effusions.Similar to the chest CT from earlier the same day LIVER/BILIARY SYSTEM:Not well evaluated due to streak artifact from the arms and lack of contrast. No definite focal hepatic mass or biliary ductal dilatation. The gallbladder is distended. It contains stones and there may be surrounding pericholecystic inflammatory change. Correlate with sonography. This could represent acute cholecystitis but should be confirmed with an additional study due to motion artifact which can simulate inflammatory change ADRENALS: Normal non-contrast appearance KIDNEYS, URETERS and BLADDER:No obstructive uropathy or definite focal mass. Very limited evaluation without contrast. Bladder as visualized appears normal SPLEEN:Spleen is unremarkable PANCREAS: Grossly normal on this noncontrast study RETROPERITONEUM and MESENTERY: Retroperitoneum and mesenteric difficult to evaluate on this study though there is suggestion of adenopathy especially to the left of the aorta and within the root of the mesentery. GASTROINTESTINAL SYSTEM: There is no evidence of diverticulitis, colitis, mechanical obstruction, or appendicitis. The small bowel as visualized appears normal.Fecal retention. Diverticulosis PELVIS: Moderate free fluid. OSSEOUS STRUCTURES and ABDOMINAL WALL: No destructive process of bone.No significant abdominal wall defect. OTHER: No free fluid or free air. IMPRESSION: 1. Significantly technically limited study. 2. Lung base findings of effusion, cardiomegaly, atelectasis and probable interstitial edema. 3. Distended gallbladder containing calculi with possible surrounding inflammatory change. The inflammatory change may be factitious due to motion artifact. However, correlation with sonography should be considered. 4. Lymphadenopathy especially in the mesentery and retroperitoneum. 5. Moderate free fluid in the pelvis. 6. I discussed the above findings with Alberta Barrera at 4:15 p.m. on September 04, [address] note that all CT scans at this facility use dose modulation, iterative reconstruction, and/or weight-based dosing when appropriate to reduce radiation dose to as low as reasonably achievable. Dictated by Haider Martinez MD @ 09/04/2021 4:21:42 PM (Electronically Signed)
--- NOTE | 2021-09-04 17:25 | US ---
INDICATION: Sepsis TECHNIQUE: Ultrasound abdomen limited. Sonographic images of the gallbladder and biliary tree were obtained using akbar-scale and color Doppler images. COMPARISON: CT 09/04/2021 FINDINGS: Liver: The liver parenchyma is normal in echotexture. Gallbladder: Multiple echogenic, shadowing mobile gallstones are present with moderate gallbladder wall edema and wall thickening seen up to 14 mm. No pericholecystic fluid is present. No sonographic [place] sign is present. Common bile duct: 4 mm. Vascular: Proximal abdominal aorta and IVC are not demonstrated. The visualized portal vein is patent with normal anterograde flow. Miscellaneous: Right kidney: 10.5 cm. Bilateral pleural effusions are present. IMPRESSION: 1. Multiple echogenic, shadowing mobile gallstones are present with moderate gallbladder wall edema and wall thickening seen up to 14 mm. Findings are suspicious for acute cholecystitis. Dictated by Tom Yoon MD @ 09/04/2021 5:23:50 PM Dictated by: Tom Yoon MD @ 09/04/2021 17:23:52 (Electronically Signed)
[2021-09-04] MEDS ORDERED: Sodium Chloride 0.9% 500 ML IV SCH (17:45)
[2021-09-04 22:14] VITALS: BP 144/84; PULSE 84
== END 2021-09-04 19:00 ==
LOC: MW.ED 08:21
DX: A41.9 Sepsis, unspecified organism (principal); J18.9 Pneumonia, unspecified organism; K81.9 Cholecystitis, unspecified; I50.9 Heart failure, unspecified; R00.0 Tachycardia, unspecified; Z87.891 Personal history of nicotine dependence; Z20.822 Contact with and (suspected) exposure to COVID-19
CPT/HCPCS: 36415; 36600; 71045; 71250; 74176; 76705; 80048; 80053; 82803; 83605; 83690; 83735; 83880; 84145; 84484; 85025; 85610; 85730; 87040; 93005; 94660; 96365; 96367; 96375; 99285; J0456; J0696; J2270; J2543; J3370; J7050; U0002

== ENCOUNTER 2022-03-21 09:10 | Emergency (ER) | payer MEDICARE, MEDICAID ==
[2022-03-21 10:04] LABS: CARBON DIOXIDE,CO2 23.5 mmol/L (21.0-32.0); POTASSIUM,K 3.8 mmol/L (3.5-5.1)
[2022-03-21] MEDS ORDERED: Furosemide 40 MG/4 ML VIAL IVPUSH STA (10:48)
[2022-03-21 11:02] LABS: CORONAVIRUS COVID-19 NAA NEGATIVE (NEGATIVE); INFLUENZA A NAA NEGATIVE (NEGATIVE); INFLUENZA B NAA NEGATIVE (NEGATIVE)
[2022-03-21 13:36] VITALS: BP 152/79; PULSE 69
[2022-03-21] MEDS ORDERED: Iopamidol 755 MG/ML 500 ML Multipack Bottle IVPUSH ONE (14:38)
== END 2022-03-21 13:34 | disposition home or self-care (01) ==
LOC: MW.ED 09:10
DX: I50.9 Heart failure, unspecified (principal); Z79.899 Other long term (current) drug therapy; Z87.891 Personal history of nicotine dependence; Z20.822 Contact with and (suspected) exposure to COVID-19
CPT/HCPCS: 0240U; 36415; 71046; 71275; 80053; 83880; 84484; 85025; 85379; 93005; 96374; 99285; J1940; Q9967; 93010; 99284

== ENCOUNTER 2022-03-31 14:03 | Observation (INO) | payer MEDICARE, MEDICAID ==
[2022-03-31] MEDS ORDERED: Furosemide 40 MG/4 ML VIAL IVPUSH ONE (14:29)
[2022-03-31 15:55] LABS: CARBON DIOXIDE,CO2 21.6 mmol/L (21.0-32.0); ESTIMATED GFR 31.5 ml/min; POTASSIUM,K 4.3 mmol/L (3.5-5.1)
[2022-03-31] MEDS ORDERED: Ondansetron 4 MG/2 ML SDV IVPUSH PRN (17:53)
[2022-03-31] MEDS ORDERED: Acetaminophen 325 MG Tab PO PRN (17:53)
[2022-03-31] MEDS ORDERED: Albuterol/Ipratropium 3.0-0.5 MG/3 ML Neb Soln NEB PRN (17:53)
[2022-04-01 07:15] LABS: CARBON DIOXIDE,CO2 22.7 mmol/L (21.0-32.0)
[2022-04-01 07:39] LABS: ESTIMATED GFR 36.8 ml/min; POTASSIUM,K 3.6 mmol/L (3.5-5.1)
[2022-04-01] MEDS: Furosemide 40 MG/4 ML VIAL IVPUSH SCH ×2 (07:48→13:59)
[2022-04-01] MEDS ORDERED: Furosemide 20 MG/2 ML VIAL IVPUSH SCH (08:00)
[2022-04-01] MEDS: Potassium Chloride 20 MEQ Tab.ER PO SCH ×2 (08:45→10:12)
[2022-04-01] MEDS ORDERED: Carvedilol 6.25 MG Tab PO SCH (09:00)
[2022-04-01] MEDS ORDERED: Lisinopril 10 MG Tab PO SCH (09:00)
[2022-04-01 12:39] VITALS: BP 120/68; PULSE 80
== END 2022-04-01 15:05 | disposition home or self-care (01) ==
LOC: MW.ED 14:03 → MW.MS 17:18
PROVIDERS: ADMIT Internal Medicine; ATTEND Internal Medicine
DX: I11.0 Hypertensive heart disease with heart failure (principal); I50.9 Heart failure, unspecified; N17.9 Acute kidney failure, unspecified; I25.2 Old myocardial infarction; Z87.891 Personal history of nicotine dependence; Z20.822 Contact with and (suspected) exposure to COVID-19
CPT/HCPCS: 36415; 71045; 80053; 81003; 83735; 83880; 84100; 84484; 85025; 93005; 96374; 96376; 99285; A9270; G0378; J1940; U0002; 93010

== ENCOUNTER 2022-04-18 20:36 | Emergency (ER) | payer MEDICARE, MEDICAID ==
[2022-04-18 21:48] LABS: CORONAVIRUS COVID-19 NAA NEGATIVE (NEGATIVE); INFLUENZA A NAA NEGATIVE (NEGATIVE); INFLUENZA B NAA NEGATIVE (NEGATIVE)
[2022-04-18 21:58] LABS: BLOOD UREA NITROGEN,BUN 55 mg/dL (7.0-18.0); CARBON DIOXIDE,CO2 17.3 mmol/L (21.0-32.0); CHLORIDE,CL 104 mmol/L (98-107); GLUCOSE RANDOM 142 mg/dL (74-106); POTASSIUM,K 5.1 mmol/L (3.5-5.1); SODIUM,NA 139 mmol/L (136-145)
[2022-04-18 21:59] LABS: ESTIMATED GFR 23 mL/min (>60)
[2022-04-18] MEDS: Lactated Ringers 1,000 ML IV STA (23:53)
[2022-04-18] MEDS: cefTRIAXone 1 GM in Sodium Chloride 0.9% 50 ML IV ONE (23:53)
[2022-04-19] MEDS: Furosemide 40 MG/4 ML VIAL IVPUSH STA (00:42)
[2022-04-19 04:12] VITALS: BP 140/107; PULSE 85
== END 2022-04-19 02:00 ==
LOC: MW.ED 20:36
DX: K81.0 Acute cholecystitis (principal); I50.9 Heart failure, unspecified; I25.2 Old myocardial infarction; Z20.822 Contact with and (suspected) exposure to COVID-19
CPT/HCPCS: 0240U; 36415; 71045; 71045-26; 74176; 74176-26; 76705; 76705-26; 80053; 81001; 83605; 83690; 83735; 83880; 84484; 85025; 87040; 93005; 93010; 96365; 96375; 99291; J0696; J1940; J7120

== ENCOUNTER 2022-05-03 14:22 | Emergency (ER) | payer MEDICARE, MEDICAID ==
[2022-05-03] MEDS ORDERED: Furosemide 40 MG/4 ML VIAL IVPUSH ONE (14:49)
[2022-05-03 15:45] LABS: CARBON DIOXIDE,CO2 22.7 mmol/L (21.0-32.0); POTASSIUM,K 4.6 mmol/L (3.5-5.1)
[2022-05-03 16:11] VITALS: BP 122/71; PULSE 74
== END 2022-05-03 16:24 | disposition home or self-care (01) ==
LOC: MW.ED 14:22
DX: I50.9 Heart failure, unspecified (principal); Z79.899 Other long term (current) drug therapy; Z90.710 Acquired absence of both cervix and uterus; Z20.822 Contact with and (suspected) exposure to COVID-19
CPT/HCPCS: 36415; 71045; 80053; 81003; 83735; 83880; 84484; 85025; 96374; 99285; J1940; U0002

== ENCOUNTER 2022-05-19 16:54 | Inpatient (IN) | payer MEDICARE, MEDICAID ==
[2022-05-19 17:52] LABS: BLOOD UREA NITROGEN,BUN 29 mg/dL (7.0-18.0); CARBON DIOXIDE,CO2 27.3 mmol/L (21.0-32.0); CHLORIDE,CL 104 mmol/L (98-107); GLUCOSE RANDOM 107 mg/dL (74-106); POTASSIUM,K 5.3 mmol/L (3.5-5.1); SODIUM,NA 140 mmol/L (136-145)
[2022-05-19 18:00] LABS: ESTIMATED GFR 39 mL/min (>60)
[2022-05-19] MEDS ORDERED: Iopamidol 755 MG/ML 500 ML Multipack Bottle IVPUSH STA (19:25)
[2022-05-19] MEDS ORDERED: Acetaminophen 325 MG Tab PO PRN (22:22)
[2022-05-19] MEDS ORDERED: Albuterol/Ipratropium 3.0-0.5 MG/3 ML Neb Soln NEB PRN (22:22)
[2022-05-19] MEDS ORDERED: Ondansetron 4 MG/2 ML SDV IVPUSH PRN (22:22)
[2022-05-19] MEDS: Lactated Ringers 1,000 ML IV SCH (23:38)
[2022-05-19] MEDS: atorvaSTATin 40 MG Tab PO SCH (23:40)
[2022-05-19] MEDS: Aspirin 81 MG Tab.Chew PO SCH (23:40)
[2022-05-20 06:29] LABS: HEMOGLOBIN A1C 6.4 %
[2022-05-20 06:55] LABS: BLOOD UREA NITROGEN,BUN 25 mg/dL (7.0-18.0); CARBON DIOXIDE,CO2 22.4 mmol/L (21.0-32.0); CHLORIDE,CL 106 mmol/L (98-107); GLUCOSE RANDOM 97 mg/dL (74-106); POTASSIUM,K 4.8 mmol/L (3.5-5.1); SODIUM,NA 141 mmol/L (136-145)
[2022-05-20 06:56] LABS: ESTIMATED GFR 48 mL/min (>60)
[2022-05-20] MEDS: Lactated Ringers 1,000 ML IV SCH (07:51)
[2022-05-20] MEDS: Clopidogrel 75 MG Tab PO SCH (08:35)
[2022-05-20] MEDS ORDERED: Gadobenate Dimeglumine 529 MG/ML 20 ML SDV IVPUSH STA (08:54)
[2022-05-20] MEDS ORDERED: Heparin Sodium 5,000 Units/ML Vial SUBCUT SCH (09:00)
[2022-05-20] MEDS ORDERED: Labetalol 100 MG/20 ML MDV IVPUSH PRN (09:32)
[2022-05-20] MEDS: atorvaSTATin 40 MG Tab PO SCH (21:26)
[2022-05-20] MEDS: Aspirin 81 MG Tab.Chew PO SCH (21:27)
[2022-05-20] MEDS ORDERED: Lactated Ringers 1,000 ML IV ONE (22:16)
[2022-05-21] MEDS ORDERED: Melatonin 3 MG Tab PO ONE (02:15)
[2022-05-21 07:54] LABS: CARBON DIOXIDE,CO2 20.8 mmol/L (21.0-32.0); POTASSIUM,K 4.8 mmol/L (3.5-5.1)
[2022-05-21] MEDS ORDERED: Carvedilol 6.25 MG Tab PO SCH ×2 (09:00)
[2022-05-21] MEDS: Clopidogrel 75 MG Tab PO SCH (10:46)
[2022-05-21 12:11] VITALS: BP 127/77; PULSE 81
== END 2022-05-21 16:00 | disposition home or self-care (01) | DRG 65 ==
LOC: MW.ED 16:54 → MW.MS 20:08
PROVIDERS: ADMIT Student in an Organized Health Care Education/Training Program; ATTEND Student in an Organized Health Care Education/Training Program
DX: I63.9 Cerebral infarction, unspecified (principal); R41.0 Disorientation, unspecified; E87.5 Hyperkalemia; I50.9 Heart failure, unspecified; G81.94 Hemiplegia, unspecified affecting left nondominant side; I50.22 Chronic systolic (congestive) heart failure; M19.90 Unspecified osteoarthritis, unspecified site; Z85.3 Personal history of malignant neoplasm of breast; Z85.42 Personal history of malignant neoplasm of other parts of uterus; F10.21 Alcohol dependence, in remission; N17.9 Acute kidney failure, unspecified; R29.702 NIHSS score 2; R74.01 Elevation of levels of liver transaminase levels; I11.0 Hypertensive heart disease with heart failure; Z20.822 Contact with and (suspected) exposure to COVID-19; E78.2 Mixed hyperlipidemia; R47.01 Aphasia; R13.10 Dysphagia, unspecified; N64.9 Disorder of breast, unspecified; H91.90 Unspecified hearing loss, unspecified ear; C50.411 Malignant neoplasm of upper-outer quadrant of right female breast; Z91.14 Patient's other noncompliance with medication regimen; Z90.710 Acquired absence of both cervix and uterus; Z79.899 Other long term (current) drug therapy; I25.2 Old myocardial infarction; Z87.891 Personal history of nicotine dependence
CPT/HCPCS: 36415; 70450; 70496; 70498; 71045; 72125; 80053; 80307; 82803; 83605; 83735; 83880; 84484; 85025; 85610; 85730; Q9967; U0002; 70553; 70553-26; 80061; 81001; 82947; 83036; 84443; 92526-GN; 92610-GN; 93005; 93010; 93306; 97161-GP; 99221; 99238; 99285; A9270-GY; J1644; J7120

== ENCOUNTER 2023-07-08 23:07 | Observation (INO) | payer MEDICARE, MEDICAID ==
[2023-07-09] MEDS ORDERED: Sodium Chloride 0.9% 2.5 ML Syringe FLUSH PRN ×2 (01:20→07:54)
[2023-07-09] MEDS ORDERED: Sodium Chloride 0.9% 10 ML Syringe FLUSH PRN ×2 (01:20→07:54)
[2023-07-09 01:58] LABS: BASOPHILS ABSOLUTE AUTO 0.1 K/uL (0.0-0.1); EOSINOPHILS ABSOLUTE AUTO 0.5 K/uL (0.0-0.7); EOSINOPHILS PERCENT AUTO 9.1 % (0.0-7.0); HEMATOCRIT 41.4 % (36.0-46.0); HEMOGLOBIN 13.4 g/dL (12.0-16.0); LYMPHOCYTES ABSOLUTE AUTO 0.8 K/uL (0.6-2.4); LYMPHOCYTES PERCENT AUTO 16.4 % (16.0-40.0); MEAN CORPUSCULAR HEMOGLOBIN 29.8 pg (27.0-32.0); MEAN CORPUSCULAR HGB CONC 32.4 g/dL (31.0-37.0); MEAN CORPUSCULAR VOLUME 92.2 fL (80.0-98.0); MONOCYTES ABSOLUTE AUTO 0.9 K/uL (0.0-0.8); MONOCYTES PERCENT AUTO 18.4 % (0.0-15.0); NEUTROPHILS ABSOLUTE AUTO 2.8 K/uL (1.4-5.7); NEUTROPHILS PERCENT AUTO 55.1 % (48.0-80.0); NRBC ABSOLUTE 0 K/uL; PLATELET COUNT,PLT 200 K/uL (150-400); RED BLOOD CELL COUNT 4.49 M/uL (4.30-5.90); WHITE BLOOD CELL COUNT,WBC 5.05 K/uL (4.0-11.0)
[2023-07-09 02:02] LABS: A/G RATIO 0.9 (0.9-1.6); BILIRUBIN TOTAL 0.3 mg/dL (0.2-1.0); CALCIUM 9.2 mg/dL (8.5-10.1); CARBON DIOXIDE,CO2 22.8 mmol/L (21.0-32.0); CREATININE 3.1 mg/dL (0.6-1.0); EST CRCL DRUG DOSING (CG) 12.3 mL/min; POTASSIUM,K 4.9 mmol/L (3.5-5.1); PROTEIN TOTAL,TP 8.5 g/dL (6.4-8.2)
[2023-07-09] MEDS ORDERED: Sodium Chloride 0.9% 500 ML IV SCH (03:15)
[2023-07-09] MEDS ORDERED: Sodium Chloride 0.9% 1,000 ML IV SCH (05:15)
[2023-07-09] MEDS ORDERED: Acetaminophen 325 MG Tab PO PRN (05:15)
[2023-07-09] MEDS ORDERED: Ondansetron 4 MG/2 ML SDV IVPUSH PRN (08:00)
[2023-07-09 08:02] LABS: APPEARANCE,URINE CLEAR; BILIRUBIN,URINE NEGATIVE (NEGATIVE); COLOR,URINE YELLOW; GLUCOSE,URINE NEGATIVE (NEGATIVE); KETONES,URINE NEGATIVE (NEGATIVE); LEUKOCYTE ESTERASE,URINE NEGATIVE (NEGATIVE); NITRITE,URINE NEGATIVE (NEGATIVE); OCCULT BLOOD,URINE NEGATIVE (NEGATIVE); PROTEIN,URINE NEGATIVE (NEGATIVE); UROBILINOGEN,URINE 0.2 EU/dL (<2.0)
[2023-07-09 14:11] LABS: CALCIUM 8.4 mg/dL (8.5-10.1); CREATININE 2.5 mg/dL (0.6-1.0); EST CRCL DRUG DOSING (CG) 15.3 mL/min; POTASSIUM,K 5.3 mmol/L (3.5-5.1)
[2023-07-10 06:05] LABS: BASOPHILS ABSOLUTE AUTO 0.1 K/uL (0.0-0.1); BASOPHILS PERCENT AUTO 1.1 % (0.0-1.5); EOSINOPHILS ABSOLUTE AUTO 0.4 K/uL (0.0-0.7); EOSINOPHILS PERCENT AUTO 9.7 % (0.0-7.0); HEMOGLOBIN 12.8 g/dL (12.0-16.0); LYMPHOCYTES ABSOLUTE AUTO 1.1 K/uL (0.6-2.4); LYMPHOCYTES PERCENT AUTO 25.7 % (16.0-40.0); MEAN CORPUSCULAR HEMOGLOBIN 29.4 pg (27.0-32.0); MONOCYTES ABSOLUTE AUTO 0.7 K/uL (0.0-0.8); MONOCYTES PERCENT AUTO 16.3 % (0.0-15.0); NEUTROPHILS ABSOLUTE AUTO 2.1 K/uL (1.4-5.7); NEUTROPHILS PERCENT AUTO 47.2 % (48.0-80.0); NRBC ABSOLUTE 0 K/uL; PLATELET COUNT,PLT 158 K/uL (150-400); RED BLOOD CELL COUNT 4.35 M/uL (4.30-5.90); WHITE BLOOD CELL COUNT,WBC 4.43 K/uL (4.0-11.0)
[2023-07-10 06:29] LABS: CALCIUM 8.7 mg/dL (8.5-10.1); CARBON DIOXIDE,CO2 22.5 mmol/L (21.0-32.0); CREATININE 1.9 mg/dL (0.6-1.0); EST CRCL DRUG DOSING (CG) 20.13 mL/min; POTASSIUM,K 4.5 mmol/L (3.5-5.1)
[2023-07-10 08:33] VITALS: PULSE 72
[2023-07-10 12:04] VITALS: BP 137/70
== END 2023-07-10 13:00 | disposition home or self-care (01) ==
LOC: MW.ED 23:07 → MW.MS 07-09 03:15
PROVIDERS: ADMIT Internal Medicine; ATTEND Internal Medicine
DX: N28.9 Disorder of kidney and ureter, unspecified (principal); N17.9 Acute kidney failure, unspecified; I63.9 Cerebral infarction, unspecified; I11.0 Hypertensive heart disease with heart failure; E78.00 Pure hypercholesterolemia, unspecified; I50.22 Chronic systolic (congestive) heart failure; E11.9 Type 2 diabetes mellitus without complications; Z85.3 Personal history of malignant neoplasm of breast; Z79.82 Long term (current) use of aspirin; Z79.899 Other long term (current) drug therapy; Z87.891 Personal history of nicotine dependence; Z90.11 Acquired absence of right breast and nipple
CPT/HCPCS: 36415; 71250; 80048; 80053; 81003; 85025; J3490; J7030; J7040; 99283

== ENCOUNTER 2023-11-03 18:18 | Observation (INO) | payer MEDICARE, MEDICAID ==
[2023-11-03 18:47] LABS: BASOPHILS ABSOLUTE AUTO 0.13 K/uL (0.00-0.20); BASOPHILS PERCENT AUTO 1.6 % (0.0-1.0); EOSINOPHILS ABSOLUTE AUTO 0.34 K/uL (0.00-0.45); EOSINOPHILS PERCENT AUTO 4.3 % (0.0-6.0); HEMATOCRIT 36.5 % (37.0-47.0); HEMOGLOBIN 11.5 g/dL (12.0-16.0); IMMATURE GRAN ABSOLUTE AUTO 0.02 K/uL (0.00-0.05); IMMATURE GRAN PERCENT AUTO 0.3 % (0.0-0.4); LYMPHOCYTES ABSOLUTE AUTO 2.29 K/uL (1.00-4.80); MEAN CORPUSCULAR HEMOGLOBIN 28.8 pg (28.0-32.0); MEAN CORPUSCULAR HGB CONC 31.5 g/dL (32.0-36.0); MEAN CORPUSCULAR VOLUME 91.3 fL (83.0-99.0); MEAN PLATELET VOLUME 12.1 fL (9.4-12.3); MONOCYTES ABSOLUTE AUTO 0.91 K/uL (0.00-0.80); MONOCYTES PERCENT AUTO 11.5 % (0.0-8.0); NEUTROPHILS ABSOLUTE AUTO 4.22 K/uL (1.80-7.70); NEUTROPHILS PERCENT AUTO 53.3 % (41.0-71.0); PLATELET COUNT,PLT 332 K/uL (150-400); WHITE BLOOD CELL COUNT,WBC 7.91 K/uL (3.9-11.3)
[2023-11-03 19:11] LABS: A/G RATIO 0.8 (0.9-1.6); ALBUMIN 3.3 g/dL (3.4-5.0); BILIRUBIN TOTAL 0.7 mg/dL (0.2-1.0); CALCIUM 8.8 mg/dL (8.5-10.1); CARBON DIOXIDE,CO2 21.4 mmol/L (21.0-32.0); CREATININE 1.6 mg/dL (0.6-1.0); EST CRCL DRUG DOSING (CG) 25.13 mL/min; POTASSIUM,K 4.4 mmol/L (3.5-5.1); PROTEIN TOTAL,TP 7.3 g/dL (6.4-8.2)
[2023-11-03 19:21] LABS: CORONAVIRUS COVID-19 NAA NEGATIVE (NEGATIVE); INFLUENZA A NAA NEGATIVE (NEGATIVE); INFLUENZA B NAA NEGATIVE (NEGATIVE); RESPIRATORY SYNCYTIAL VIR NAA NEGATIVE (NEGATIVE)
[2023-11-03] MEDS ORDERED: Furosemide 40 MG/4 ML VIAL IVPUSH ONE (20:08)
[2023-11-03] MEDS ORDERED: Albuterol/Ipratropium 3.0-0.5 MG/3 ML Neb Soln NEB PRN (22:27)
[2023-11-03] MEDS ORDERED: Polyethylene Glycol 3350 Powder 17 GM Packet PO PRN (22:27)
[2023-11-03] MEDS ORDERED: Sodium Chloride 0.9% 20 ML SDV IV PRN (22:27)
[2023-11-03] MEDS ORDERED: Ondansetron 4 MG/2 ML SDV IVPUSH PRN (22:27)
[2023-11-03] MEDS ORDERED: Sodium Chloride 0.9% 2.5 ML Syringe FLUSH PRN (22:27)
[2023-11-03] MEDS ORDERED: Sodium Chloride 0.9% 10 ML Syringe FLUSH PRN (22:27)
[2023-11-03] MEDS ORDERED: Acetaminophen 325 MG Tab PO PRN (22:27)
[2023-11-04 05:39] LABS: BASOPHILS ABSOLUTE AUTO 0.11 K/uL (0.00-0.20); BASOPHILS PERCENT AUTO 1.6 % (0.0-1.0); EOSINOPHILS ABSOLUTE AUTO 0.43 K/uL (0.00-0.45); EOSINOPHILS PERCENT AUTO 6.3 % (0.0-6.0); IMMATURE GRAN ABSOLUTE AUTO 0.02 K/uL (0.00-0.05); IMMATURE GRAN PERCENT AUTO 0.3 % (0.0-0.4); LYMPHOCYTES ABSOLUTE AUTO 2.44 K/uL (1.00-4.80); LYMPHOCYTES PERCENT AUTO 35.9 % (24.0-44.0); MEAN CORPUSCULAR HEMOGLOBIN 28.6 pg (28.0-32.0); MEAN CORPUSCULAR HGB CONC 32.4 g/dL (32.0-36.0); MEAN CORPUSCULAR VOLUME 88.5 fL (83.0-99.0); MEAN PLATELET VOLUME 12.4 fL (9.4-12.3); MONOCYTES ABSOLUTE AUTO 0.89 K/uL (0.00-0.80); MONOCYTES PERCENT AUTO 13.1 % (0.0-8.0); NEUTROPHILS ABSOLUTE AUTO 2.91 K/uL (1.80-7.70); NEUTROPHILS PERCENT AUTO 42.8 % (41.0-71.0); PLATELET COUNT,PLT 309 K/uL (150-400); RED BLOOD CELL COUNT 3.84 M/uL (4.10-5.30)
[2023-11-04 05:55] LABS: CALCIUM 8.3 mg/dL (8.5-10.1); CARBON DIOXIDE,CO2 22.4 mmol/L (21.0-32.0); CREATININE 1.5 mg/dL (0.6-1.0); EST CRCL DRUG DOSING (CG) 26.81 mL/min; MAGNESIUM 1.8 mg/dL (1.8-2.4); POTASSIUM,K 3.5 mmol/L (3.5-5.1)
[2023-11-04 08:24] LABS: HEMOGLOBIN A1C 5.5 %
[2023-11-04 08:33] LABS: TSH ULTRASENSITIVE 3.46 uIU/mL (0.36-3.74)
[2023-11-04] MEDS ORDERED: Furosemide 20 MG/2 ML VIAL IVPUSH SCH (09:00)
[2023-11-04 10:10] VITALS: BP 146/76; PULSE 86
== END 2023-11-04 12:50 | disposition home or self-care (01) ==
LOC: MW.ED 18:18 → MW.MS 21:44
PROVIDERS: ADMIT Family Medicine; ATTEND Family Medicine
DX: I11.0 Hypertensive heart disease with heart failure (principal); I50.22 Chronic systolic (congestive) heart failure; J81.0 Acute pulmonary edema; E11.9 Type 2 diabetes mellitus without complications; C50.411 Malignant neoplasm of upper-outer quadrant of right female breast; J44.9 Chronic obstructive pulmonary disease, unspecified; N17.9 Acute kidney failure, unspecified; E78.2 Mixed hyperlipidemia; Z20.822 Contact with and (suspected) exposure to COVID-19; Z87.891 Personal history of nicotine dependence; Z79.899 Other long term (current) drug therapy
CPT/HCPCS: 0241U; 36415; 71045; 80048; 80053; 80061; 83036; 83735; 83880; 84443; 84484; 85025; 93005; 93306; J1940; 93010; 99284

== ENCOUNTER 2023-11-24 16:22 | Inpatient (IN) | payer MEDICARE, MEDICAID ==
[2023-11-24 17:30] LABS: BASE EXCESS ARTERIAL -5.5 (-2.0-3.0); BICARBONATE,ARTERIAL 18 mEq/L (22-26); PCO2 ARTERIAL 30 mmHG (35-45); PO2 ARTERIAL 102 mmHG (80-105)
[2023-11-24 17:40] LABS: HEMATOCRIT 37.5 % (37.0-47.0); HEMOGLOBIN 11.7 g/dL (12.0-16.0); MEAN CORPUSCULAR HEMOGLOBIN 26.6 pg (28.0-32.0); MEAN CORPUSCULAR HGB CONC 31.2 g/dL (32.0-36.0); MEAN CORPUSCULAR VOLUME 85.2 fL (83.0-99.0); MEAN PLATELET VOLUME 12.3 fL (9.4-12.3); NRBC ABSOLUTE 0.06 K/uL (0.00-0.02); NRBC PERCENT 0.5 /100WBC (0.0-0.2); PLATELET COUNT,PLT 315 K/uL (150-400); WHITE BLOOD CELL COUNT,WBC 11.56 K/uL (3.9-11.3)
[2023-11-24 18:19] LABS: A/G RATIO 0.7 (0.9-1.6); ALBUMIN 3.2 g/dL (3.4-5.0); BILIRUBIN TOTAL 1.4 mg/dL (0.2-1.0); CALCIUM 8.7 mg/dL (8.5-10.1); CARBON DIOXIDE,CO2 21.9 mmol/L (21.0-32.0); CREATININE 1.4 mg/dL (0.6-1.0); EST CRCL DRUG DOSING (CG) 28.72 mL/min; POTASSIUM,K 4.1 mmol/L (3.5-5.1); PROTEIN TOTAL,TP 7.5 g/dL (6.4-8.2)
[2023-11-24 18:34] LABS: SEG NEUTROPHILS ABSOLUTE MAN 7.28 K/uL (1.80-7.70); SEG NEUTROPHILS PERCENT MAN 63 % (41-71)
[2023-11-24 18:35] LABS: BASOPHILS ABSOLUTE MAN 0.23 K/uL (0.00-0.20); BASOPHILS PERCENT MAN 2 % (0-1); EOSINOPHILS ABSOLUTE MAN 0.46 K/uL (0.00-0.45); EOSINOPHILS PERCENT MAN 4 % (0-6); LYMPHOCYTES ABSOLUTE MAN 1.97 K/uL (1.00-4.80); LYMPHOCYTES PERCENT MAN 17 % (24-44); MONOCYTES PERCENT MAN 13 % (0-8); MYELOCYTE ABSOLUTE MAN 0.12; MYELOCYTE PERCENT MAN 1 %
[2023-11-24] MEDS: Iopamidol 755 MG/ML 500 ML Multipack Bottle IVPUSH STA (19:38)
[2023-11-24] MEDS: Furosemide 40 MG/4 ML VIAL IVPUSH ONE (19:39)
[2023-11-25 05:35] LABS: BASOPHILS ABSOLUTE AUTO 0.14 K/uL (0.00-0.20); BASOPHILS PERCENT AUTO 1.4 % (0.0-1.0); EOSINOPHILS ABSOLUTE AUTO 0.28 K/uL (0.00-0.45); EOSINOPHILS PERCENT AUTO 2.7 % (0.0-6.0); HEMATOCRIT 36.1 % (37.0-47.0); HEMOGLOBIN 11.1 g/dL (12.0-16.0); IMMATURE GRAN ABSOLUTE AUTO 0.03 K/uL (0.00-0.05); IMMATURE GRAN PERCENT AUTO 0.3 % (0.0-0.4); LYMPHOCYTES PERCENT AUTO 22.4 % (24.0-44.0); MEAN CORPUSCULAR HEMOGLOBIN 26.3 pg (28.0-32.0); MEAN CORPUSCULAR HGB CONC 30.7 g/dL (32.0-36.0); MEAN CORPUSCULAR VOLUME 85.5 fL (83.0-99.0); MEAN PLATELET VOLUME 12.6 fL (9.4-12.3); MONOCYTES ABSOLUTE AUTO 1.48 K/uL (0.00-0.80); MONOCYTES PERCENT AUTO 14.4 % (0.0-8.0); NEUTROPHILS ABSOLUTE AUTO 6.05 K/uL (1.80-7.70); NEUTROPHILS PERCENT AUTO 58.8 % (41.0-71.0); NRBC ABSOLUTE 0.06 K/uL (0.00-0.02); NRBC PERCENT 0.6 /100WBC (0.0-0.2); PLATELET COUNT,PLT 270 K/uL (150-400); RED BLOOD CELL COUNT 4.22 M/uL (4.10-5.30); WHITE BLOOD CELL COUNT,WBC 10.28 K/uL (3.9-11.3)
[2023-11-25 05:55] LABS: CALCIUM 8.2 mg/dL (8.5-10.1); CARBON DIOXIDE,CO2 19.9 mmol/L (21.0-32.0); CREATININE 1.4 mg/dL (0.6-1.0); EST CRCL DRUG DOSING (CG) 28.37 mL/min; POTASSIUM,K 3.9 mmol/L (3.5-5.1)
[2023-11-25] MEDS ORDERED: Ondansetron 4 MG/2 ML SDV IVPUSH PRN (07:32)
[2023-11-25 07:41] LABS: A/G RATIO 0.8 (0.9-1.6); ALBUMIN 2.9 g/dL (3.4-5.0); BILIRUBIN DIRECT 0.8 mg/dL (0.0-0.5); BILIRUBIN INDIRECT 0.7; BILIRUBIN TOTAL 1.5 mg/dL (0.2-1.0); PROTEIN TOTAL,TP 6.7 g/dL (6.4-8.2)
[2023-11-25] MEDS: Heparin Sodium 5,000 Units/ML Vial SUBCUT SCH (08:42)
[2023-11-25] MEDS: Pantoprazole 40 MG in Sodium Chloride 0.9% 10 ML IVPUSH SCH (08:42)
[2023-11-25] MEDS: Furosemide 40 MG/4 ML VIAL IVPUSH SCH (08:42)
[2023-11-25] MEDS: Lisinopril 10 MG Tab PO SCH (08:43)
[2023-11-25] MEDS ORDERED: Enoxaparin 30 MG/0.3 ML Syringe SUBCUT SCH (09:00)
[2023-11-25] MEDS: Empagliflozin 10 MG Tab PO SCH (12:57)
[2023-11-25] MEDS: atorvaSTATin 40 MG Tab PO SCH (21:10)
[2023-11-26 06:25] LABS: BASOPHILS ABSOLUTE AUTO 0.11 K/uL (0.00-0.20); BASOPHILS PERCENT AUTO 1.1 % (0.0-1.0); EOSINOPHILS ABSOLUTE AUTO 0.79 K/uL (0.00-0.45); HEMATOCRIT 32.9 % (37.0-47.0); HEMOGLOBIN 10.4 g/dL (12.0-16.0); IMMATURE GRAN ABSOLUTE AUTO 0.05 K/uL (0.00-0.05); IMMATURE GRAN PERCENT AUTO 0.5 % (0.0-0.4); LYMPHOCYTES ABSOLUTE AUTO 2.25 K/uL (1.00-4.80); LYMPHOCYTES PERCENT AUTO 22.8 % (24.0-44.0); MEAN CORPUSCULAR HEMOGLOBIN 26.7 pg (28.0-32.0); MEAN CORPUSCULAR HGB CONC 31.6 g/dL (32.0-36.0); MEAN CORPUSCULAR VOLUME 84.4 fL (83.0-99.0); MEAN PLATELET VOLUME 12.3 fL (9.4-12.3); MONOCYTES ABSOLUTE AUTO 1.16 K/uL (0.00-0.80); MONOCYTES PERCENT AUTO 11.7 % (0.0-8.0); NEUTROPHILS ABSOLUTE AUTO 5.53 K/uL (1.80-7.70); NEUTROPHILS PERCENT AUTO 55.9 % (41.0-71.0); NRBC ABSOLUTE 0.02 K/uL (0.00-0.02); NRBC PERCENT 0.2 /100WBC (0.0-0.2); PLATELET COUNT,PLT 256 K/uL (150-400); WHITE BLOOD CELL COUNT,WBC 9.89 K/uL (3.9-11.3)
[2023-11-26 06:44] LABS: CALCIUM 8.2 mg/dL (8.5-10.1); CREATININE 1.6 mg/dL (0.6-1.0); EST CRCL DRUG DOSING (CG) 25.45 mL/min; POTASSIUM,K 3.4 mmol/L (3.5-5.1)
[2023-11-26 07:27] LABS: A/G RATIO 0.7 (0.9-1.6); ALBUMIN 2.6 g/dL (3.4-5.0); BILIRUBIN DIRECT 0.8 mg/dL (0.0-0.5); BILIRUBIN INDIRECT 0.8; BILIRUBIN TOTAL 1.6 mg/dL (0.2-1.0); MAGNESIUM 1.7 mg/dL (1.8-2.4); PROTEIN TOTAL,TP 6.1 g/dL (6.4-8.2)
[2023-11-26] MEDS: Potassium Chloride 20 MEQ Tab.ER PO ONE (08:36)
[2023-11-26] MEDS: Magnesium Sulfate/Water 2 GM in Premix Bag 1 BAG IV ONE (10:02)
[2023-11-26 15:32] VITALS: BP 118/55; PULSE 78
[2023-11-27] MEDS ORDERED: Pantoprazole 40 MG Tab.CR PO SCH (09:00)
== END 2023-11-26 14:55 | disposition home or self-care (01) | DRG 291 ==
LOC: MW.ED 16:22 → MW.MS 21:24
PROVIDERS: ADMIT Internal Medicine; ATTEND Internal Medicine
PROC: 4A033R1 Measurement of Arterial Saturation, Peripheral, Percutaneous Approach (ICD-10-PCS; principal; 2023-11-24)
DX: I50.9 Heart failure, unspecified (principal); I11.0 Hypertensive heart disease with heart failure; I50.23 Acute on chronic systolic (congestive) heart failure; J96.21 Acute and chronic respiratory failure with hypoxia; R74.01 Elevation of levels of liver transaminase levels; J44.9 Chronic obstructive pulmonary disease, unspecified; M19.90 Unspecified osteoarthritis, unspecified site; E11.9 Type 2 diabetes mellitus without complications; E78.2 Mixed hyperlipidemia; K76.1 Chronic passive congestion of liver; I08.8 Other rheumatic multiple valve diseases; Z79.899 Other long term (current) drug therapy; I25.2 Old myocardial infarction; Z87.891 Personal history of nicotine dependence; Z90.710 Acquired absence of both cervix and uterus; Z86.73 Personal history of transient ischemic attack (TIA), and cerebral infarction without residual deficits; Z85.3 Personal history of malignant neoplasm of breast; Z90.11 Acquired absence of right breast and nipple
CPT/HCPCS: 36415; 36600; 71045; 71275; 76705; 80053; 80143; 82803; 83880; 84484 ×2; 85025; 93005; 96374; 99285; J1940; Q9967; 80048; 80076; 83735; 93010; A9270-GY; C9113; J1644; J3475; J3490

== ENCOUNTER 2023-12-05 03:43 | Emergency (ER) | payer MEDICARE, MEDICAID ==
[2023-12-05 04:14] LABS: BASE EXCESS ARTERIAL -8.8 (-2.0-3.0); BICARBONATE,ARTERIAL 14 mEq/L (22-26); PCO2 ARTERIAL 20 mmHG (35-45); PO2 ARTERIAL 72 mmHG (80-105)
[2023-12-05 04:16] LABS: HEMOGLOBIN 12.2 g/dL (12.0-16.0); MEAN CORPUSCULAR HEMOGLOBIN 25.5 pg (28.0-32.0); MEAN CORPUSCULAR HGB CONC 30.5 g/dL (32.0-36.0); MEAN CORPUSCULAR VOLUME 83.5 fL (83.0-99.0); MEAN PLATELET VOLUME 11.5 fL (9.4-12.3); NRBC ABSOLUTE 0.07 K/uL (0.00-0.02); NRBC PERCENT 0.4 /100WBC (0.0-0.2); PLATELET COUNT,PLT 468 K/uL (150-400); RED BLOOD CELL COUNT 4.79 M/uL (4.10-5.30); WHITE BLOOD CELL COUNT,WBC 17.39 K/uL (3.9-11.3)
[2023-12-05] MEDS: Sodium Chloride 0.9% 2.5 ML Syringe FLUSH PRN (04:16)
[2023-12-05] MEDS: Sodium Chloride 0.9% 10 ML Syringe FLUSH PRN (04:16)
[2023-12-05 04:29] LABS: LACTIC ACID 5.3 mmol/L (0.4-2.0)
[2023-12-05 04:31] LABS: A/G RATIO 0.7 (0.9-1.6); ALBUMIN 3.2 g/dL (3.4-5.0); BILIRUBIN TOTAL 1.4 mg/dL (0.2-1.0); CARBON DIOXIDE,CO2 19.4 mmol/L (21.0-32.0); CREATININE 2.3 mg/dL (0.6-1.0); EST CRCL DRUG DOSING (CG) 17.4 mL/min; POTASSIUM,K 4.4 mmol/L (3.5-5.1); PROTEIN TOTAL,TP 7.9 g/dL (6.4-8.2)
[2023-12-05 04:32] LABS: EOSINOPHILS ABSOLUTE MAN 0.52 K/uL (0.00-0.45); EOSINOPHILS PERCENT MAN 3 % (0-6); LYMPHOCYTES ABSOLUTE MAN 5.22 K/uL (1.00-4.80); LYMPHOCYTES PERCENT MAN 30 % (24-44); MONOCYTES ABSOLUTE MAN 1.39 K/uL (0.00-0.80); MONOCYTES PERCENT MAN 8 % (0-8); SEG NEUTROPHILS ABSOLUTE MAN 10.26 K/uL (1.80-7.70); SEG NEUTROPHILS PERCENT MAN 59 % (41-71)
[2023-12-05] MEDS: Piperacillin/Tazobactam 4.5 GM in Sodium Chloride 0.9% 100 ML IV ONE (04:50)
[2023-12-05] MEDS: Furosemide 40 MG/4 ML VIAL IVPUSH SCH (04:58)
[2023-12-05] MEDS ORDERED: Naloxone 0.4 MG/ML SDV IVPUSH PRN (07:15)
[2023-12-05] MEDS: fentaNYL 100 MCG/2 ML SDV IVPUSH ONE (07:39)
[2023-12-05] MEDS: Ondansetron 4 MG/2 ML SDV IVPUSH ONE (07:39)
[2023-12-05 08:49] VITALS: BP 138/67; PULSE 90
== END 2023-12-05 09:15 ==
LOC: MW.ED 03:43
DX: R65.20 Severe sepsis without septic shock (principal); K81.0 Acute cholecystitis; I50.23 Acute on chronic systolic (congestive) heart failure; I11.0 Hypertensive heart disease with heart failure; J44.9 Chronic obstructive pulmonary disease, unspecified; Z79.899 Other long term (current) drug therapy
CPT/HCPCS: 36415; 36600; 71045; 76705; 80053; 82803; 83605; 83880; 84484; 85025; 87040; 93005; 96365; 96375; 99285; J1940; J2405; J2543; J3010; J3490; 93010